=== PATIENT | female | born 1970 | race Caucasian/White ===

== ENCOUNTER → 2016-10-23 | Outpatient (CLI) | payer BC ==
--- NOTE | 2016-10-24 08:42 | MM ---
Reason for exam: clinical finding. Last mammogram was performed 9 months ago. History: Patient has history of other cancer at age 26. Took hormonal contraceptives for 6 years beginning at age 21. Indicated problem(s): palpable abnormality and pain in the left breast. Physical Findings: Nurse Summary: A 0.5cm nodule in the right breast at 10 o'clock, and a 0.2cm nodule in the left breast at 12 o'clock (nurse dw). MG 3D Diag Mammo W/Cad ISAIAS Bilateral CC and MLO view(s) were taken. Prior study comparison: January 17, 2016, bilateral MG screening mammo w CAD. October 28, 2008, bilateral digital screening mammogram. The breast tissue is extremely dense which could obscure a lesion on mammography. Nodules in the right breast. These results were verbally communicated with the patient and result sheet given to the patient on 10/23/16. ASSESSMENT: Incomplete: need additional imaging evaluation, BI-RAD 0 RECOMMENDATION: Ultrasound of both breasts. (left nodules and right palpable)
--- NOTE | 2016-10-24 08:45 | USB ---
Reason for exam: additional evaluation requested from abnormal screening. History: Patient has history of other cancer at age 26. Took hormonal contraceptives for 6 years beginning at age 21. US Breast Limited BILAT Right Breast ultrasound demonstrates a 0.4 x 0.3 x 0.2cm oval, too small to characterize lesion at 12 o'clock, a 0.3 x 0.2 x 0.2cm oval, too small to characterize lesion at 12 o'clock, a 0.4 x 0.3 x 0.4cm oval cystic lesion at 10 o'clock, and a 0.6 x 0.7 x 0.3 cm oval cystic lesion at 10 o'clock. Left breast ultrasound demonstrates a 2.4 x 2.7 x 2.1cm oval, cystic lesion at BB at 10 o'clock. These results were verbally communicated with the patient and result sheet given to the patient on 10/23/16. ASSESSMENT: Benign, BI-RAD 2 RECOMMENDATION: Aspiration of the left breast. (if dominant cyst in the left breast is painfulit can be aspirated) Manage patient on a clinical basis. Called Dr. Baptiste with mammographic findings and has scheduled an appointment for the patient for 11/15/[address] Larkin. Aspiration scheduled for 11/01/16 at 12:20. PRELIMINARY REPORT CALLED AND FAXED TO DR. LARKIN ON 10/24/16 AT 300/TMP.
== END | disposition home or self-care (01) ==
LOC: RADMAMWWP 15:41
PROVIDERS: ATTEND Obstetrics & Gynecology
DX: R92.2 Inconclusive mammogram (principal); N63 Unspecified lump in breast
CPT/HCPCS: 76642; G0204; G0279

== ENCOUNTER → 2016-11-01 | Day surgery (SDC) | payer BC ==
--- NOTE | 2016-11-01 13:58 | USB ---
ULTRASOUND GUIDED LEFT BREAST FINE-NEEDLE ASPIRATION: CLINICAL HISTORY: Request for large left breast cyst aspiration FINDINGS: The procedure was explained to the patient. The risks, complications, benefits and alternatives were discussed and any questions were answered. Informed consent was obtained. Patient was placed supine on the ultrasound table and prepped and draped in the usual sterile fashion. Utilizing a 22 gauge needle, single pass was made into the left breast lesion. Approximate 7 cc of serous fluid aspirated. Patient was stable throughout the procedure. Pathology is pending. All elements of maximal barrier technique were utilized. IMPRESSION: 1. Successful ultrasound guided left breast cyst aspiration. Pathology pending. Pathology Results: Benign BREAST, LEFT TEN O'CLOCK, ASPIRATE: DEGENERATED CELLULAR MATERIAL, HISTIOCYTES AND INFLAMMATORY CELLS CONSISTENT WITH CYST CONTENTS. Recommendation Follow up ultrasound of the left breast in 6 months. ERIKAD
== END ==
LOC: RADUSWWP 11:12
PROVIDERS: ATTEND Surgery
DX: N60.02 Solitary cyst of left breast (principal); Z88.5 Allergy status to narcotic agent; Z91.040 Latex allergy status
CPT/HCPCS: 76942; 88108; 88305

== ENCOUNTER → 2018-03-12 | Outpatient (CLI) | payer BC ==
--- NOTE | 2018-03-14 13:20 | MM ---
Reason for exam: screening (asymptomatic). Last mammogram was performed 1 year and 5 months ago. History: Patient has history of other cancer at age 26. Benign US breast aspiration single LT of the left breast, November 01, 2016. Took hormonal contraceptives for 6 years beginning at age 21. Physical Findings: A clinical breast exam by your physician is recommended on an annual basis and results should be correlated with mammographic findings. MG 3D Screening Mammo W/Cad Bilateral CC and MLO view(s) were taken. Prior study comparison: October 23, 2016, bilateral MG 3d diag mammo w/cad ISAIAS. January 17, 2016, bilateral MG screening mammo w CAD. The breast tissue is extremely dense which could obscure a lesion on mammography. There is no discrete abnormality at BB, consider ultrasound. No significant changes when compared with prior studies. ASSESSMENT: Incomplete: need additional imaging evaluation, BI-RAD 0 RECOMMENDATION: Ultrasound of the left breast. (palpable) [facility] will attempt to contact patient to return for ultrasound.
== END | disposition home or self-care (01) ==
LOC: RADMAMWWP 16:48
PROVIDERS: ATTEND Surgery
DX: Z12.31 Encounter for screening mammogram for malignant neoplasm of breast (principal)
CPT/HCPCS: 77063; 77067

== ENCOUNTER → 2018-03-26 | Outpatient (CLI) | payer BC ==
--- NOTE | 2018-03-27 09:51 | USB ---
Reason for exam: additional evaluation requested from abnormal screening. History: Patient has history of other cancer at age 26. Benign US breast aspiration single LT of the left breast, November 01, 2016. Took hormonal contraceptives for 6 years beginning at age 21. Physical Findings: Nurse Summary: left breast palpable 6 o'clock, tender, movable, 2 x 2cm (nurse ts). US Breast Workup Limited LT Left limited breast ultrasound including focal area of concern, retroareolar and axilla demonstrates a 2.7 x 0.7 x 1.9cm benign, cystic cluster at 3 o'clock, a 1.9 x 0.9 x 1.9cm benign, cystic cluster at 5 o'clock BB and duct ectasia at the posterior nipple. No solid or suspicious lesion. Scanned 3-6 o'clock. These results were verbally communicated with the patient and result sheet given to the patient on 03/26/18. ASSESSMENT: Benign, BI-RAD 2 RECOMMENDATION: Return to routine screening mammogram schedule for both breasts. Manage on a clinical basis with regard to palpable cysts. Cyst aspiration can be performed if symptomatic.
== END | disposition home or self-care (01) ==
LOC: RADUSWWP 15:42
PROVIDERS: ATTEND Surgery
DX: R92.8 Other abnormal and inconclusive findings on diagnostic imaging of breast (principal)

== ENCOUNTER → 2020-02-05 | Outpatient (CLI) | payer BC ==
--- NOTE | 2020-02-09 08:27 | MM ---
Reason for exam: screening (asymptomatic). Last mammogram was performed 1 year and 11 months ago. History: Patient has history of other cancer at age 26. Family history of breast cancer in paternal cousin at age 60. Benign US breast aspiration single LT of the left breast, November 01, 2016. Took hormonal contraceptives for 6 years beginning at age 21. Physical Findings: A clinical breast exam by your physician is recommended on an annual basis and results should be correlated with mammographic findings. MG 3D Screening Mammo W/Cad Bilateral CC and MLO view(s) were taken. Prior study comparison: March 12, 2018, bilateral MG 3d screening mammo w/cad. October 23, 2016, bilateral MG 3d diag mammo w/cad ISAIAS. The breast tissue is extremely dense which could obscure a lesion on mammography. No significant changes when compared with prior studies. ASSESSMENT: Negative, BI-RAD 1 RECOMMENDATION: Routine screening mammogram of both breasts in 1 year.
== END | disposition home or self-care (01) ==
LOC: RADMAMWWP 16:37
PROVIDERS: ATTEND Family Medicine
DX: Z12.31 Encounter for screening mammogram for malignant neoplasm of breast (principal)
CPT/HCPCS: 77063; 77067

== ENCOUNTER 2020-02-19 09:45 | Day surgery (SDC) | payer BC ==
[2020-02-17 17:06] VITALS: BMI 23.8
[~2020-02-19 09:45] MED LIST: LACTATED RINGERS 1,000 ML IV SCH
[2020-02-19 10:30] VITALS: TEMP 98.8
[2020-02-19] MEDS ORDERED: PROPOFOL 10 MG/ML 20 ML VIAL IV ONE (11:44)
--- NOTE | 2020-02-19 12:24 | P.PCN ---
Date of Procedure: 02/19/20 Description of Procedure: BRIEF HISTORY: Patient is a 50-year-old female presenting for outpatient colonoscopy for training for malignant neoplasm in the colon. No prior colonoscopy. No change in bowel habits, blood per rectum or family history of colon cancer. PROCEDURE PERFORMED: Colonoscopy. PREOPERATIVE DIAGNOSIS: Screening for malignant neoplasm of the colon, no prior colonoscopy. ESTIMATED BLOOD LOSS: Minimal. IV sedation per Anesthesia. PROCEDURE: After informed consent was obtained, the patient, was brought into the endoscopy unit. IV sedation was administered by Anesthesia under continuous monitoring. Digital rectal examination was normal. Initially the Olympus CF-190 flexible video colonoscope was then inserted in the rectum, gradually advanced into the cecum without any difficulty. Careful examination was performed as the scope was gradually being withdrawn. Ileocecal valve and the appendiceal orifice were visualized and appeared normal. Prep was excellent. Mucosa of the cecum, ascending colon, transverse colon, descending colon, sigmoid colon, and rectum appeared normal. Sigmoid was somewhat tortuous. Retroflexion was performed in the rectum and no lesions were seen. The patient tolerated the procedure well. IMPRESSION: Normal-appearing colon from rectum to cecum. RECOMMENDATIONS: Findings of this examination were discussed with the patient and her . Okay to resume diet. Okay to resume medications. Would recommend repeat colonoscopy in 10 years or sooner if any signs or symptoms which were further evaluation develop.
[2020-02-19 13:02] VITALS: BP 125/74; PULSE 77; RESP 18
== END 2020-02-19 13:27 | disposition home or self-care (01) ==
LOC: ORWHC2ENDO 09:45
PROVIDERS: ATTEND Internal Medicine
DX: Z12.11 Encounter for screening for malignant neoplasm of colon (principal); Z80.0 Family history of malignant neoplasm of digestive organs; Z91.040 Latex allergy status; Z79.899 Other long term (current) drug therapy; Z88.5 Allergy status to narcotic agent
CPT/HCPCS: 81025; G0121; J2704; 45378

== ENCOUNTER → 2021-02-17 | Outpatient (CLI) | payer BC ==
--- NOTE | 2021-02-21 12:35 | MM ---
Reason for exam: screening (asymptomatic). Last mammogram was performed 1 year ago. History: Patient has history of other cancer at age 26. Family history of breast cancer in paternal cousin at age 60. Benign US breast aspiration single LT of the left breast, November 01, 2016. Took hormonal contraceptives for 6 years beginning at age 21. Physical Findings: A clinical breast exam by your physician is recommended on an annual basis and results should be correlated with mammographic findings. MG 3D Screening Mammo W/Cad Bilateral CC and MLO view(s) were taken. XCCL view(s) were taken of the right breast. Prior study comparison: February 05, 2020, bilateral MG 3d screening mammo w/cad. March 12, 2018, bilateral MG 3d screening mammo w/cad. The breast tissue is heterogeneously dense. This may lower the sensitivity of mammography. No significant changes when compared with prior studies. ASSESSMENT: Benign, BI-RAD 2 RECOMMENDATION: Routine screening mammogram of both breasts in 1 year.
== END | disposition home or self-care (01) ==
LOC: RADMAMWWP 16:22
PROVIDERS: ATTEND Obstetrics & Gynecology
DX: Z12.31 Encounter for screening mammogram for malignant neoplasm of breast (principal); Z80.3 Family history of malignant neoplasm of breast
CPT/HCPCS: 77063; 77067

== ENCOUNTER → 2022-03-03 | Outpatient (CLI) | payer BC ==
--- NOTE | 2022-03-10 18:14 | MM ---
Reason for Exam: Screening (asymptomatic). Last mammogram was performed 1 year(s) and 1 month(s) ago. Indicated Problems: Lump or thickening of the right side for 1 Month(s). Patient History: Menarche at age 11. First Full-Term at age 28. Late child-bearing (after 28). Other cancer, age 26. Hormonal Contraceptives, starting at age 21 for 6 years. 11/01/2016, Benign Cyst Aspiration on the left side. Paternal cousin had breast cancer, age 60. Last menstrual period: Risk Values: Macrina 5 year model risk: 1.6%. NCI Lifetime model risk: 11.4%. Prior Study Comparison: 03/12/2018 Bilateral Screening Mammogram, [facility]. 02/05/2020 Bilateral Screening Mammogram, [facility]. 02/17/2021 Bilateral Screening Mammogram, [facility]. Tissue Density: The breast tissue is heterogeneously dense. This may lower the sensitivity of mammography. Findings: Analyzed By CAD. There is no suspicious group of microcalcifications or new suspicious mass in either breast. Overall Assessment: Negative, BI-RAD 1 Management: Screening Mammogram of both breasts in 1 year. A clinical breast exam by your physician is recommended on an annual basis and results should be correlated with mammographic findings. Electronically signed and approved by: Sascha Navarro DO
== END | disposition home or self-care (01) ==
LOC: RADMAMWWP 16:56
PROVIDERS: ATTEND Obstetrics & Gynecology
DX: Z12.31 Encounter for screening mammogram for malignant neoplasm of breast (principal)
CPT/HCPCS: 77063; 77067

== ENCOUNTER → 2022-05-17 | Outpatient (CLI) | payer BC ==
[2022-05-17 15:37] LABS: HCT 45.1 % (37.2-46.3); HGB 14.6 g/dL (12.0-15.0); MCH 29.4 pg (27.0-32.0); MCHC 32.4 g/dL (32.0-37.0); MCV 90.9 fL (80.0-97.0); Mean Platelet Volume 10.1 fL (9.5-12.2); NRBC Per 100 WBC 0 /100 WBCS (0.0-0.0); Platelet Count 264 X 10*3/uL (140-440); RBC 4.96 X 10*6/uL (4.10-5.20); RDW 13.8 % (11.5-14.5)
[2022-05-17 18:22] LABS: ALT 27 U/L (8-44); AST 26 U/L (13-35); African American GFR (CKD) 96.9 (60.0-200.0); Albumin 3.5 g/dL (3.8-4.9); Albumin/Globulin Ratio 1.94 (1.60-3.17); Alkaline Phosphatase 56 U/L (41-126); Blood Urea Nitrogen 19.6 mg/dL (9.0-27.0); Calcium 8.7 mg/dL (8.7-10.3); Chloride 106 mmol/L (96-109); Chol/HDL Ratio 2.79 Ratio; Globulin 1.8 g/dL (1.6-3.3); Glucose 91 mg/dL (70-110); LDL Cholesterol,Calculated 106.4 mg/dL (0.0-131.0); Non-African American GFR(CKD) 83.6 (60.0-200.0); Potassium 4.4 mmol/L (3.5-5.5); Sodium 141 mmol/L (135-145); Total Protein 5.3 g/dL (6.2-8.2); VLDL Calculation 11.66 mg/dL (5.00-40.00)
== END | disposition home or self-care (01) ==
LOC: LABWHC1 10:45
PROVIDERS: ATTEND Family Medicine
DX: Z00.01 Encounter for general adult medical examination with abnormal findings (principal)
CPT/HCPCS: 36415; 80053; 80061; 85027

== ENCOUNTER 2022-06-10 13:49 | Emergency (ER) | payer BC ==
[2022-06-10 14:11] VITALS: TEMP 98.6
[2022-06-10 14:22] VITALS: RESP 18
[2022-06-10] MEDS ORDERED: SODIUM CHLORIDE 0.9% 1,000 ML IV STA (14:55)
[2022-06-10] MEDS ORDERED: NALOXONE 0.4 MG/ML 1 ML VIAL IVP STA (14:56)
[2022-06-10 15:29] LABS: Basophils # (A) 0.1 k/uL (0-0.2); Basophils % (A) 1 %; Eosinophils # (A) 0.2 k/uL (0-0.7); Eosinophils % (A) 2 %; HCT 44.4 % (34.0-46.0); HGB 15.2 gm/dL (11.4-16.0); Lymphocytes # (A) 2.1 k/uL (1.0-4.8); Lymphocytes % (A) 24 %; MCH 30.4 pg (25.0-35.0); MCHC 34.1 g/dL (31.0-37.0); Mean Platelet Volume 8.6; Monocytes # (A) 0.5 k/uL (0-1.0); Monocytes % (A) 5 %; Neutrophils # (A) 5.5 k/uL (1.3-7.7); Neutrophils % (A) 65 %; Platelet Count 299 k/uL (150-450); RBC 4.99 m/uL (3.80-5.40); RDW 13.1 % (11.5-15.5); WBC 8.4 k/uL (3.8-10.6)
[2022-06-10 16:07] LABS: Glucose,Whole Blood 82 mg/dL (70-110)
[2022-06-10 16:14] LABS: Appearance,Urine Clear (Clear); Bilirubin,Urine Negative (Negative); Blood,Urine Negative (Negative); Color,Urine Light Yellow; Glucose,Urine (UA) Negative (Negative); Ketones,Urine Trace (Negative); Leukocyte Esterase,Urine Negative (Negative); Nitrite,Urine Negative (Negative); Protein,Urine Negative (Negative); Specific Gravity,Urine 1.013 (1.001-1.035); Urobilinogen,Urine <2.0 mg/dL (<2.0)
[2022-06-10 16:20] LABS: Partial Thromboplastin Time 22.5 sec (22.0-30.0); Prothrombin Time 10.5 sec (9.0-12.0)
[2022-06-10 16:34] LABS: Amphetamine Screen,Urine Not Detected (NotDetected); Barbiturate Screen,Urine Not Detected (NotDetected); Benzodiazepines Screen,Urine Not Detected (NotDetected); Cocaine Screen,Urine Not Detected (NotDetected); Methadone Screen, Urine Not Detected (NotDetected); Opiate Screen,Urine Not Detected (NotDetected); Oxycodone Screen, Urine Not Detected (NotDetected); Phencyclidine Screen,Urine Not Detected (NotDetected); Tricyclic Antidepressant,Urine Not Detected (NotDetected); Urn Cannabinoid Scrn Not Detected (NotDetected)
--- NOTE | 2022-06-10 16:49 | XR ---
EXAMINATION TYPE: XR chest 2V DATE OF EXAM: 06/10/2022 4:27 PM COMPARISON: None TECHNIQUE: XR chest 2V Frontal and lateral views of the chest. CLINICAL INDICATION:Female, 52 years old with history of altered mental status; FINDINGS: Lungs/Pleura: There is no evidence of pleural effusion, focal consolidation, or pneumothorax. Pulmonary vascularity: Unremarkable. Heart/mediastinum: Cardiomediastinal silhouette is unremarkable. Musculoskeletal: No acute osseous pathology. IMPRESSION: No acute cardiopulmonary disease/process.
--- NOTE | 2022-06-10 16:50 | CT ---
EXAMINATION TYPE: CT brain wo con CT DLP: 1145.4 mGycm, Automated exposure control for dose reduction was used. DATE OF EXAM: 06/10/2022 4:30 PM COMPARISON: None CLINICAL INDICATION:Female, 52 years old with history of obtunded, TECHNIQUE: Brain: Axial CT images of the brain were obtained with coronal and sagittal reformats created and rev iewed. Contrast used: None. Oral contrast used: None. FINDINGS: Brain: Extra-axial spaces: No abnormal extra-axial fluid collections. Ventricular system: Within normal limits Cerebral parenchyma: No acute intraparenchymal hemorrhage or mass effect. The tinoco-white junction is well differentiated. Cerebellum: Unremarkable. Mass effect: No evidence of midline shift. Intracranial vasculature: unremarkable Soft tissues: Normal. Calvarium/osseous structures: No depressed skull fracture. Paranasal sinuses and mastoid air cells: Moderate scattered paranasal sinus disease most pronounced i n the left maxillary sinus and ethmoid air cells. Visualized orbits: Orbital contents are intact. IMPRESSION: 1. No acute intracranial process. 2. Moderate paranasal sinus disease.
[2022-06-10 17:24] VITALS: BP 135/87; PULSE 80
--- NOTE | 2022-06-10 17:42 | ED ---
General Adult HPI - General Source: patient Mode of arrival: EMS Limitations: no limitations <Chetan Craven - Last Filed: 06/10/22 17:42> <Tee Iraheta - Last Filed: 06/10/22 18:33> - General Chief complaint: Dizziness Stated complaint: Dizziness Time Seen by Provider: 06/10/22 14:31 - History of Present Illness Initial comments: Patient is a 52-year-old female presenting with chief complaint of dizziness. A t 12:37 PM patient had acute onset dizziness, headache, diaphoresis, hallucinations, numbness and tingling. Patient was on the phone when her son noticed that she was acting abnormally, called EMS. He states that when EMS arrived patient was tachycardic and hypertensive. She admits to headache and nausea. At this time she denies any chest pain, difficulty breathing, vision or hearing changes, abdominal pain, fever, chills, vomiting, syncope. (Chetan Craven) - Related Data Home Medications Medication Instructions Recorded Confirmed Cholecalciferol (Vitamin D3) 125 mcg PO DAILY 02/17/20 02/19/20 [Vitamin D3] Multivitamins, Thera [Multivitamin 1 tab PO DAILY 02/17/20 02/19/20 (formulary)] levonorgestreL [Mirena] 1 each IY ONCE 02/17/20 02/19/20 Allergies Allergy/AdvReac Type Severity Reaction Status Date / Time latex Allergy BLISTERS Verified 02/17/20 16:39 Review of Systems ROS Other: All systems not noted in ROS Statement are negative. <Chetan Craven - Last Filed: 06/10/22 17:42> ROS Other: All systems not noted in ROS Statement are negative. <Tee Iraheta - Last Filed: 06/10/22 18:33> ROS Statement: Those systems with pertinent positive or pertinent negative responses have been documented in the HPI. Past Medical History Additional Past Medical History / Comment(s): HAS IUD History of Any Multi-Drug Resistant Organisms: None Reported Past Surgical History: Orthopedic Surgery Additional Past Surgical History / Comment(s): RT ROTATOR CUFF REPAIR. LT KNEE SX Past Anesthesia/Blood Transfusion Reactions: No Reported Reaction Past Psychological History: No Psychological Hx Reported Smoking Status: Never smoker Past Alcohol Use History: Occasional Past Drug Use History: None Reported Additional Drug Use History / Comment(s): USES CBD OINTMENT NEEDED - Past Family History Father Family Medical History: Deep Vein Thrombosis (DVT) <Chetan Craven - Last Filed: 06/10/22 17:42> General Exam Limitations: no limitations General appearance: alert, in no apparent distress Head exam: Present: atraumatic, normocephalic, normal inspection Eye exam: Present: normal appearance, PERRL, EOMI. Absent: scleral icterus, conjunctival injection, periorbital swelling Pupils: Present: normal accommodation Neck exam: Present: normal inspection, full ROM Respiratory exam: Present: normal lung sounds bilaterally. Absent: respiratory distress, wheezes, rales, rhonchi, stridor Cardiovascular Exam: Present: regular rate, normal rhythm, normal heart sounds. Absent: systolic murmur, diastolic murmur, rubs, gallop, clicks GI/Abdominal exam: Present: soft. Absent: distended, tenderness, guarding, rebound, rigid Neurological exam: Present: alert, oriented X3, CN II-XII intact Expanded Patient oriented to: Present: person, place, time Speech: Present: fluid speech Cranial nerves: EOM's Intact: Normal, Tongue Deviation: Normal, Facial Sensati on: Normal Cerebellar function: Finger to Nose: Normal Sensory exam: Upper Extremity Light Touch: Normal, Lower Extremity Light Touch: Normal Motor strength exam: RUE: 5, LUE: 5, RLE: 5, LLE: 5 Eye Response: (4) open spontaneously Motor Response: (6) obeys commands Verbal Response: (5) oriented Oscar Total: 15 Psychiatric exam: Present: normal affect, normal mood Skin exam: Present: warm, dry, intact, normal color. Absent: rash <Chetan Craven - Last Filed: 06/10/22 17:42> Course Vital Signs 06/10/22 06/10/22 06/10/22 14:05 14:21 17:10 Temperature 98.6 F Pulse Rate 86 78 80 Respiratory 20 18 18 Rate Blood Pressure 132/92 132/90 135/87 O2 Sat by Pulse 100 92 L 100 Oximetry Medical Decision Making - Lab Data Result diagrams: 06/10/22 15:00 <Chetan Craven - Last Filed: 06/10/22 17:42> - Lab Data Result diagrams: 06/10/22 15:00 06/10/22 18:06 <Tee Iraheta - Last Filed: 06/10/22 18:33> - Medical Decision Making Patient is a 52-year-old female presenting with multiple complaints, including altered mental status, headache, nausea. On physical examination there are no focal neurological deficits, NIH score is 0. Heart and lungs are clear to auscultation. Lab work shows no leukocytosis or anemia. Coags are WNL. Blood sugar is 82. Ammonia is 14. Troponin is less than 0.012. Urine shows trace ketones, patient is receiving IV fluids. Urine toxicology is negative. CT of the brain shows no acute intracranial process. Chest x-ray shows no acute c ardiopulmonary process. CMP has been repeatedly hemolyzed, new sample is sent. Patient is signed out to my attending Dr. Iraheta at [id number]. (Chetan Craven) - Lab Data Lab Results 06/10/22 06/10/22 06/10/22 Range/Units 15:00 15:00 15:00 WBC 8.4 (3.8-10.6) k/uL RBC 4.99 (3.80-5.40) m/uL Hgb 15.2 (11.4-16.0) gm/dL Hct 44.4 (34.0-46.0) % MCV 89.0 (80.0-100.0) fL MCH 30.4 (25.0-35.0) pg MCHC 34.1 (31.0-37.0) g/dL RDW 13.1 (11.5-15.5) % Plt Count 299 (150-450) k/uL MPV 8.6 Neutrophils % 65 % Lymphocytes % 24 % Monocytes % 5 % Eosinophils % 2 % Basophils % 1 % Neutrophils # 5.5 (1.3-7.7) k/uL Lymphocytes # 2.1 (1.0-4.8) k/uL Monocytes # 0.5 (0-1.0) k/uL Eosinophils # 0.2 (0-0.7) k/uL Basophils # 0.1 (0-0.2) k/uL PT 10.5 (9.0-12.0) sec INR 1.0 (<1.2) APTT 22.5 (22.0-30.0) sec Sodium (137-145) mmol/L Potassium (3.5-5.1) mmol/L Chloride (98-107) mmol/L Carbon Dioxide (22-30) mmol/L Anion Gap mmol/L BUN (7-17) mg/dL Creatinine (0.52-1.04) mg/dL Est GFR (CKD-EPI)AfAm (>60 ml/min/1.73 sqM) Est GFR (CKD-EPI)NonAf (>60 ml/min/1.73 sqM) Glucose (74-99) mg/dL POC Glucose (mg/dL) (70-110) mg/dL POC Glu [employer] Faculty Member ID Calcium (8.4-10.2) mg/dL Magnesium (1.6-2.3) mg/dL Total Bilirubin (0.2-1.3) mg/dL AST (14-36) U/L ALT (4-34) U/L Alkaline Phosphatase (38-126) U/L Ammonia (<30) umol/L Troponin I <0.012 (0.000-0.034) ng/mL Total Protein (6.3-8.2) g/dL Albumin (3.5-5.0) g/dL Urine Color Urine Appearance (Clear) Urine pH (5.0-8.0) Ur Specific [place] (1.001-1.035) Urine Protein (Negative) Urine Glucose (UA) (Negative) Urine Ketones (Negative) Urine Blood (Negative) Urine Nitrite (Negative) Urine Bilirubin (Negative) Urine Urobilinogen (<2.0) mg/dL Ur Leukocyte Esterase (Negative) Urine Opiates Screen (NotDetected) Ur Oxycodone Screen (NotDetected) Urine Methadone Screen (NotDetected) Ur Propoxyphene Screen (NotDetected) Ur Barbiturates Screen (NotDetected) U Tricyclic Antidepress (NotDetected) Ur Phencyclidine Scrn (NotDetected) Ur Amphetamines Screen (NotDetected) U Methamphetamines Scrn (NotDetected) U Benzodiazepines Scrn (NotDetected) Urine Cocaine Screen (NotDetected) U Marijuana (THC) Screen (NotDetected) 12/17/22 12/17/22 12/17/22 Range/Units 15:00 15:15 15:55 WBC (3.8-10.6) k/uL RBC (3.80-5.40) m/uL Hgb (11.4-16.0) gm/dL Hct (34.0-46.0) % MCV (80.0-100.0) fL MCH (25.0-35.0) pg MCHC (31.0-37.0) g/dL RDW (11.5-15.5) % Plt Count (150-450) k/uL MPV Neutrophils % % Lymphocytes % % Monocytes % % Eosinophils % % Basophils % % Neutrophils # (1.3-7.7) k/uL Lymphocytes # (1.0-4.8) k/uL Monocytes # (0-1.0) k/uL Eosinophils # (0-0.7) k/uL Basophils # (0-0.2) k/uL PT (9.0-12.0) sec INR (<1.2) APTT (22.0-30.0) sec Sodium (137-145) mmol/L Potassium (3.5-5.1) mmol/L Chloride (98-107) mmol/L Carbon Dioxide (22-30) mmol/L Anion Gap mmol/L BUN (7-17) mg/dL Creatinine (0.52-1.04) mg/dL Est GFR (CKD-EPI)AfAm (>60 ml/min/1.73 sqM) Est GFR (CKD-EPI)NonAf (>60 ml/min/1.73 sqM) Glucose (74-99) mg/dL POC Glucose (mg/dL) 82 (70-110) mg/dL POC Glu [employer] Faculty Member ID Luis Miguel Michel Calcium (8.4-10.2) mg/dL Magnesium (1.6-2.3) mg/dL Total Bilirubin (0.2-1.3) mg/dL AST (14-36) U/L ALT (4-34) U/L Alkaline Phosphatase (38-126) U/L Ammonia 14 (<30) umol/L Troponin I (0.000-0.034) ng/mL Total Protein (6.3-8.2) g/dL Albumin (3.5-5.0) g/dL Urine Color Light Yellow Urine Appearance Clear (Clear) Urine pH 8.0 (5.0-8.0) Ur Specific [place] 1.013 (1.001-1.035) Urine Protein Negative (Negative) Urine Glucose (UA) Negative (Negative) Urine Ketones Trace H (Negative) Urine Blood Negative (Negative) Urine Nitrite Negative (Negative) Urine Bilirubin Negative (Negative) Urine Urobilinogen <2.0 (<2.0) mg/dL Ur Leukocyte Esterase Negative (Negative) Urine Opiates Screen Not Detected (NotDetected) Ur Oxycodone Screen Not Detected (NotDetected) Urine Methadone Screen Not Detected (NotDetected) Ur Propoxyphene Screen Not Detected (NotDetected) Ur Barbiturates Screen Not Detected (NotDetected) U Tricyclic Antidepress Not Detected (NotDetected) Ur Phencyclidine Scrn Not Detected (NotDetected) Ur Amphetamines Screen Not Detected (NotDetected) U Methamphetamines Scrn Not Detected (NotDetected) U Benzodiazepines Scrn Not Detected (NotDetected) Urine Cocaine Screen Not Detected (NotDetected) U Marijuana (THC) Screen Not Detected (NotDetected) 06/10/22 Range/Units 18:06 WBC (3.8-10.6) k/uL RBC (3.80-5.40) m/uL Hgb (11.4-16.0) gm/dL Hct (34.0-46.0) % MCV (80.0-100.0) fL MCH (25.0-35.0) pg MCHC (31.0-37.0) g/dL RDW (11.5-15.5) % Plt Count (150-450) k/uL MPV Neutrophils % % Lymphocytes % % Monocytes % % Eosinophils % % Basophils % % Neutrophils # (1.3-7.7) k/uL Lymphocytes # (1.0-4.8) k/uL Monocytes # (0-1.0) k/uL Eosinophils # (0-0.7) k/uL Basophils # (0-0.2) k/uL PT (9.0-12.0) sec INR (<1.2) APTT (22.0-30.0) sec Sodium 138 (137-145) mmol/L Potassium 3.9 (3.5-5.1) mmol/L Chloride 104 (98-107) mmol/L Carbon Dioxide 30 (22-30) mmol/L Anion Gap 4 mmol/L BUN 20 H (7-17) mg/dL Creatinine 0.65 (0.52-1.04) mg/dL Est GFR (CKD-EPI)AfAm >90 (>60 ml/min/1.73 sqM) Est GFR (CKD-EPI)NonAf >90 (>60 ml/min/1.73 sqM) Glucose 103 H (74-99) mg/dL POC Glucose (mg/dL) (70-110) mg/dL POC Glu [employer] Faculty Member ID Calcium 8.3 L (8.4-10.2) mg/dL Magnesium 1.9 (1.6-2.3) mg/dL Total Bilirubin 0.4 (0.2-1.3) mg/dL AST 30 (14-36) U/L ALT 43 H (4-34) U/L Alkaline Phosphatase 73 (38-126) U/L Ammonia (<30) umol/L Troponin I (0.000-0.034) ng/mL Total Protein 5.5 L (6.3-8.2) g/dL Albumin 3.4 L (3.5-5.0) g/dL Urine Color Urine Appearance (Clear) Urine pH (5.0-8.0) Ur Specific [place] (1.001-1.035) Urine Protein (Negative) Urine Glucose (UA) (Negative) Urine Ketones (Negative) Urine Blood (Negative) Urine Nitrite (Negative) Urine Bilirubin (Negative) Urine Urobilinogen (<2.0) mg/dL Ur Leukocyte Esterase (Negative) Urine Opiates Screen (NotDetected) Ur Oxycodone Screen (NotDetected) Urine Methadone Screen (NotDetected) Ur Propoxyphene Screen (NotDetected) Ur Barbiturates Screen (NotDetected) U Tricyclic Antidepress (NotDetected) Ur Phencyclidine Scrn (NotDetected) Ur Amphetamines Screen (NotDetected) U Methamphetamines Scrn (NotDetected) U Benzodiazepines Scrn (NotDetected) Urine Cocaine Screen (NotDetected) U Marijuana (THC) Screen (NotDetected) Disposition <Chetan Craven Last Filed: 06/10/22 17:42> Is patient prescribed a controlled substance at d/c from ED?: No <Tee Iraheta - Last Filed: 06/10/22 18:33> Clinical Impression: Altered mental status Disposition: HOME SELF-CARE Condition: Good Instructions (If sedation given, give patient instructions): Altered Mental Status (ED) Referrals: Masoud Minor MD [Primary Care Provider] - 1-2 days Siva Britt MD [STAFF PHYSICIAN] - 1-2 days
[2022-06-10 18:29] LABS: ALT 43 U/L (4-34); AST 30 U/L (14-36); African American GFR (CKD) >90 (>60 ml/min/1.73 sqM); Albumin 3.4 g/dL (3.5-5.0); Alkaline Phosphatase 73 U/L (38-126); Anion Gap 4 mmol/L; Blood Urea Nitrogen 20 mg/dL (7-17); Calcium 8.3 mg/dL (8.4-10.2); Carbon Dioxide 30 mmol/L (22-30); Chloride 104 mmol/L (98-107); Glucose 103 mg/dL (74-99); Magnesium 1.9 mg/dL (1.6-2.3); Non-African American GFR(CKD) >90 (>60 ml/min/1.73 sqM); Potassium 3.9 mmol/L (3.5-5.1); Sodium 138 mmol/L (137-145); Total Bilirubin 0.4 mg/dL (0.2-1.3); Total Protein 5.5 g/dL (6.3-8.2)
== END 2022-06-10 19:18 | disposition home or self-care (01) ==
LOC: EC 13:49
DX: R41.82 Altered mental status, unspecified (principal); Z88.2 Allergy status to sulfonamides; Z97.5 Presence of (intrauterine) contraceptive device
CPT/HCPCS: 36415; 70450; 71046; 80053; 80306; 81003; 82140; 83735; 84484; 85025; 85610; 85730; 93005; 99285

== ENCOUNTER → 2022-07-22 | Outpatient (CLI) | payer BC ==
--- NOTE | 2022-07-24 09:33 | MR ---
EXAMINATION TYPE: MR brain wo/w con DATE OF EXAM: 07/22/2022 8:18 AM CLINICAL INDICATION:Female, 52 years old with history of R41.82 ALTERED MENTAL STATUS,Z86.73 PRSNL HX OF TI; Memory loss, episode of hallucination, possible seizure COMPARISON: CT brain 06/10/2022 TECHNIQUE: Multi planar, multi sequence imaging was performed through the brain including: T1, T2, In version recovery, susceptibility weighted imaging and gradient echo imaging and Diffusion weighted im aging. The patient was then given intravenous contrast and multi planar, T1 fat-saturation images wer e obtained. IV Contrast: 7 cc Gadavist FINDINGS: The tinoco-white junctions, ventricular system, basal cisterns appear unremarkable. Diffusion-weighted imaging shows no evidence of restricted diffusion to suggest acute/subacute infarct. Intracranial art erial flow voids are maintained. Midline structures show no abnormality. Scattered foci of high T2 si gnal intensity are seen within the periventricular white matter as well as in the bilateral seema. The susceptibility weighted images do not reveal any evidence for micro-hemorrhage. After administration of gadolinium, no abnormal enhancement is seen. The bone marrow signal is within normal limits. Paranasal sinuses and mastoid air cells: Mild scattered paranasal sinus disease. Visualized orbits: Orbital contents are intact. IMPRESSION: 1. No evidence of intracranial mass, acute/subacute infarct, or abnormal enhancement. 2. Nonspecific white matter changes within the deep white matter and seema.
== END | disposition home or self-care (01) ==
LOC: RADMRIMAIN 07:34
PROVIDERS: ATTEND Psychiatry & Neurology Neurology
DX: R41.82 Altered mental status, unspecified (principal); R90.82 White matter disease, unspecified; Z86.73 Personal history of transient ischemic attack (TIA), and cerebral infarction without residual deficits
CPT/HCPCS: 70553; A9585

== ENCOUNTER 2022-09-23 19:53 | Observation (INO) | payer BC ==
[2022-09-23] MEDS ORDERED: SODIUM CHLORIDE 0.9% 1,000 ML IV ONE (20:21)
[2022-09-23] MEDS ORDERED: ONDANSETRON 4 MG/2 ML VIAL IVP STA (20:22)
[2022-09-23 20:28] LABS: Glucose,Whole Blood 137 mg/dL (70-110)
[2022-09-23 20:30] LABS: Basophils % (A) 0 %; Eosinophils # (A) 0.1 k/uL (0-0.7); Eosinophils % (A) 1 %; HCT 41.8 % (34.0-46.0); HGB 13.7 gm/dL (11.4-16.0); Lymphocytes # (A) 0.4 k/uL (1.0-4.8); Lymphocytes % (A) 5 %; MCH 29.6 pg (25.0-35.0); MCHC 32.8 g/dL (31.0-37.0); MCV 90.5 fL (80.0-100.0); Mean Platelet Volume 7.6; Monocytes # (A) 0.2 k/uL (0-1.0); Monocytes % (A) 2 %; Neutrophils # (A) 6.7 k/uL (1.3-7.7); Neutrophils % (A) 91 %; Platelet Count 273 k/uL (150-450); RBC 4.62 m/uL (3.80-5.40); RDW 13.5 % (11.5-15.5); WBC 7.4 k/uL (3.8-10.6)
[2022-09-23 20:42] LABS: ALT 31 U/L (4-34); AST 28 U/L (14-36); African American GFR (CKD) >90 (>60 ml/min/1.73 sqM); Albumin 3.9 g/dL (3.5-5.0); Alcohol <10 mg/dL; Alkaline Phosphatase 66 U/L (38-126); Anion Gap 5 mmol/L; Blood Urea Nitrogen 22 mg/dL (7-17); Calcium 8.6 mg/dL (8.4-10.2); Carbon Dioxide 29 mmol/L (22-30); Chloride 102 mmol/L (98-107); Glucose 129 mg/dL (74-99); Non-African American GFR(CKD) >90 (>60 ml/min/1.73 sqM); Potassium 4.4 mmol/L (3.5-5.1); Sodium 136 mmol/L (137-145); Total Bilirubin 0.5 mg/dL (0.2-1.3); Total Protein 6.2 g/dL (6.3-8.2)
[2022-09-23 20:54] LABS: INR 0.9 (<1.2); Prothrombin Time 10.1 sec (9.0-12.0)
--- NOTE | 2022-09-23 20:58 | XR ---
EXAMINATION TYPE: XR chest 2V DATE OF EXAM: 09/23/2022 8:53 PM COMPARISON: Chest radiographs from 06/10/2022 TECHNIQUE: XR chest 2V Frontal and lateral views of the chest. CLINICAL INDICATION:Female, 52 years old with history of altered mental status; FINDINGS: Lungs/Pleura: There is no evidence of pleural effusion, focal consolidation, or pneumothorax. Pulmonary vascularity: Unremarkable. Heart/mediastinum: Cardiomediastinal silhouette is unremarkable. Musculoskeletal: No acute osseous pathology. IMPRESSION: No acute cardiopulmonary disease/process.
--- NOTE | 2022-09-23 21:00 | CT ---
EXAMINATION TYPE: CT brain wo con CT DLP: 1131.4 mGycm, Automated exposure control for dose reduction was used. DATE OF EXAM: 09/23/2022 8:53 PM COMPARISON: MR 07/24/2022, CT 06/10/2022. CLINICAL INDICATION:Female, 52 years old with history of Altered mental status, AMS TECHNIQUE: Brain: Axial CT images of the brain were obtained with coronal and sagittal reformats created and rev iewed. Contrast used: None. Oral contrast used: None. FINDINGS: Brain: Extra-axial spaces: No abnormal extra-axial fluid collections. Ventricular system: Within normal limits Cerebral parenchyma: No acute intraparenchymal hemorrhage or mass effect. The tionco-white junction is well differentiated. Cerebellum: Unremarkable. Mass effect: No evidence of midline shift. Intracranial vasculature: unremarkable Soft tissues: Normal. Calvarium/osseous structures: No depressed skull fracture. Paranasal sinuses and mastoid air cells: Mild scattered paranasal sinus disease. Visualized orbits: Orbital contents are intact. IMPRESSION: No acute intracranial process.
[2022-09-23 21:32] LABS: Partial Thromboplastin Time 21.1 sec (22.0-30.0)
[2022-09-23] MEDS ORDERED: SODIUM CHLORIDE 0.9% 1,000 ML IV STA (21:34)
[2022-09-23] MEDS ORDERED: MAGNESIUM SULFATE-D5W PMX 1 GM in DEXTROSE/WATER 1 100ML.BAG IVPB ONE (21:34)
[2022-09-23] MEDS ORDERED: NALOXONE 0.4 MG/ML 1 ML VIAL IV PRN (21:52)
--- NOTE | 2022-09-23 21:52 | ED ---
General Adult HPI - General Chief complaint: Headache Stated complaint: siezure Time Seen by Provider: 09/23/22 20:04 Source: patient, RN notes reviewed, old records reviewed Mode of arrival: ambulatory Limitations: no limitations - History of Present Illness Initial comments: Patient is a 52-year-old female who presents to the emergency department comp laining of an episode of altered mental status. This has occurred previously and a thorough outpatient workup including psychiatric eval is yet to produce any answers. Last occurred back in May. Patient was on a bus returning from [facility] with her with she and episode of screaming out per as well as some episodes where she seemed to be somewhat semi-conscious and acting differently. Possible shaking of the upper extremities as well. Presents for further evaluation at this time. Patient states she feels tired. No other acute complaints at this time. Mild intermittent headache. No chest pain, shortness breath, abdominal pain, nausea, vomiting. No other acute c omplaints. Unknown what her MRI showed. Was obtained back in June. Presents for further evaluation. - Related Data Home Medications Medication Instructions Recorded Confirmed Cholecalciferol (Vitamin D3) 125 mcg PO DAILY 02/17/20 09/23/22 [Vitamin D3] levonorgestreL [Mirena] 1 dose IY DIRECTED 02/17/20 09/23/22 Ascorbic Acid [Vitamin C] 1,000 mg PO DAILY 09/23/22 09/23/22 Azelastine HCl [Astelin Nasal 137 mcg EA NOSTRIL DAILY PRN 09/23/22 09/23/22 [place]] Fexofenadine/Pseudoephedrine 1 tab PO BID PRN 09/23/22 09/23/22 [Yesenia-D 12 Hour Tablet] Ibuprofen [Advil] 400 mg PO Q8HR PRN 09/23/22 09/23/22 Magnesium 250 mg PO DAILY 09/23/22 09/23/22 Vitamin B Complex 1 cap PO DAILY 09/23/22 09/23/22 Zinc Gluconate [Zinc] 50 mg PO DAILY 09/23/22 09/23/22 valACYclovir HCL [Valtrex] 500 mg PO DIRECTED PRN 09/23/22 09/23/22 Allergies Allergy/AdvReac Type Severity Reaction Status Date / Time latex Allergy BLISTERS Verified 09/23/22 22:21 Review of Systems ROS Statement: Those systems with pertinent positive or pertinent negative responses have been documented in the HPI. Review of Systems: CONST: Denies fever EYES: Denies blurry vision ENT: Denies nasal congestion C/V: Denies Chest pain RESP: Denies shortness of breath GI: Denies abdominal pain : Denies dysuria SKIN: Denies rash. MSK: Denies joint pain. NEURO: Endorses generalized weakness ROS Other: All systems not noted in ROS Statement are negative. Past Medical History Additional Past Medical History / Comment(s): HAS IUD History of Any Multi-Drug Resistant Organisms: None Reported Past Surgical History: Orthopedic Surgery Additional Past Surgical History / Comment(s): RT ROTATOR CUFF REPAIR. LT KNEE SX Past Anesthesia/Blood Transfusion Reactions: No Reported Reaction Past Psychological History: No Psychological Hx Reported Smoking Status: Never smoker Past Alcohol Use History: Occasional Past Drug Use History: None Reported - Past Family History Father Family Medical History: Deep Vein Thrombosis (DVT) General Exam - General Exam Comments Initial Comments: General: Appears in no acute distress. HEAD: Normal with no signs of head trauma. EYES: PERRLA, EOMI, conjunctiva normal, no discharge. Pupils are 3 mm and equal bilaterally. ENT: Hearing grossly intact, normal oropharynx. RESPIRATORY: Clear breath sounds bilaterally. No wheezes, rales, or rhonchi. C/V: Regular rate and rhythm. S1 and S2 auscultated, no edema, peripheral pu lses 2+ and intact throughout ABD: Abd is soft, nontender, nondistended EXT: Normal range of motion, no obvious deformity SKIN: No rashes or lesions observed on exposed skin. NEURO: Alert and oriented 4. NIH is 0. GCS of 15. No focal deficits. Limitations: no limitations Course Vital Signs 09/23/22 09/23/22 09/23/22 19:59 21:03 21:20 Temperature 97.4 F L Pulse Rate 88 82 82 Respiratory 20 16 16 Rate Blood Pressure 137/86 133/81 129/79 O2 Sat by Pulse 99 99 94 L Oximetry Medical Decision Making - Medical Decision Making Was pt. sent in by a medical professional or institution (, PA, BANKRUPTCY LAW SPECIALIST, urgent care, hospital, or [facility]...) When possible be specific @ -No Did you speak to anyone other than the patient for history (EMS, parent, family, police, friend...)? What history was obtained from this source @ -Patient's who assists with the history. Did you review nursing and triage notes (agree or disagree)? Why? @ -I reviewed and agree with nursing and triage notes Were old charts reviewed (outside hosp., previous admission, EMS record, old EKG, old radiological studies, urgent care reports/EKG's, [facility] records)? Report findings @ -Old MRIs as well as prior visit from May 2022 were reviewed. Differential Diagnosis (chest pain, altered mental status, abdominal pain women, abdominal pain men, vaginal bleeding, weakness, fever, dyspnea, syncope, headache, dizziness, GI bleed, back pain, seizure, CVA, palpatations, mental health, musculoskeletal)? @ -Seizure, pseudoseizure, psychiatric illness, CVA, dehydration, infection, cardiopulmonary etiology such as ACS. This list is not all-inclusive. EKG interpreted by me (3pts min.). @ -As above X-rays interpreted by me (1pt min.). @ -Chest x-ray shows no acute cardio pulmonary process. CT interpreted by me (1pt min.). @ -CT brain shows no obvious acute intracranial injury or process. U/S interpreted by me (1pt. min.). @ -None done What testing was considered but not performed or refused? (CT, X-rays, U/S, labs)? Why? @ -None What meds were considered but not given or refused? Why? @ -None Did you discuss the management of the patient with other professionals (professionals i.e. , PA, BANKRUPTCY LAW SPECIALIST, lab, RT, psych nurse, health and social care teacher, line painting machine operator, teacher, parachute officer, correctional case manager)? Give summary @ -Discussed with the admitting physician, Dr. Adam who accepted the patient. Was smoking cessation discussed for >3mins.? @ -No Was critical care preformed (if so, how long)? @ -No Were there social determinants of health that impacted care today? How? (Homelessness, low income, unemployed, alcoholism, drug addiction, transportation, low edu. Level, literacy, decrease access to med. care, long-term, r ehab)? @ -No Was there de-escalation of care discussed even if they declined (Discuss DNR or withdrawal of care, Hospice)? DNR status @ -No What co-morbidities impacted this encounter? (DM, HTN, Smoking, COPD, CAD, Cancer, CVA, ARF, Chemo, Hep., AIDS, mental health diagnosis, sleep apnea, morbid obesity)? @ -None Was patient admitted / discharged? Hospital course, mention meds given and route, prescriptions, significant lab abnormalities, going to OR and other pertinent info. @ -Based on the patient's presentation and physical exam, she had a "neurologic episode" as her and her call it. She had one back in May but had multiple potential episodes today. They don't know if it is seizures or not. Has had a thorough outpatient workup for this. Patient currently is more tired than her normal baseline. Presents for further evaluation at this time. We will obtain broad workup including CT brain. She was in agreement this plan. Otherwise acting normally. Exam is unremarkable. Vital signs within acceptable limits. Patient's EKG shows no signs of acute ischemia. Imaging for a chest x-ray as well as brain CT were unremarkable. Patient's laboratory studies are remarkable for a lactic acid within normal limits. Ammonia is negative. Troponin is undetectable. Urine studies are still pending at this time. Remainder of the labs are within acceptable limits. Based on the workup, I'm concerned for possible psychiatric contribution to her symptoms but cannot rule out other neurological cause. I did discuss with the patient and patient's her workup. At this time, patient is still more tired and below her baseline per patient's . I did offer admission to observation for neurology evaluate her as well as to watch her overnight and they were in agreement this plan. States that she has had no other episodes until today when she had multiple episodes since her last episode back in May. We did discuss her MRI findings from back in June which showed nonspecific white matter changes in the seema. We will keep her in telemetry monitoring and have neuro evaluate her here. Dr. Britt was consulted. I spoke with Dr. Adam the accepting physician who accepted the patient. Undiagnosed new problem with uncertain prognosis? @ -Yes Drug Therapy requiring intensive monitoring for toxicity (Heparin, Nitro, Insulin, Cardizem)? @ -No Were any procedures done? @ -No Diagnosis/symptom? @ -Altered mental status Acute, or Chronic, or Acute on Chronic? @ -Acute on chronic Uncomplicated (without systemic symptoms) or Complicated (systemic symptoms)? @ -Uncomplicated Side effects of treatment? @ -No Exacerbation, Progression, or Severe Exacerbation? @ -No Poses a threat to life or bodily function? How? (Chest pain, [place], [place], pneumonia, PE, COPD, DKA, ARF, appy, cholecystitis, CVA, Diverticulitis, Homicidal, Suicidal, threat to staff... and all critical care pts) @ -Potentially, unknown etiology. - Lab Data Result diagrams: 09/23/22 20:24 09/23/22 20:24 Lab Results 09/23/22 09/23/22 09/23/22 Range/Units 20:24 20:24 20:24 WBC 7.4 (3.8-10.6) k/uL RBC 4.62 (3.80-5.40) m/uL Hgb 13.7 (11.4-16.0) gm/dL Hct 41.8 (34.0-46.0) % MCV 90.5 (80.0-100.0) fL MCH 29.6 (25.0-35.0) pg MCHC 32.8 (31.0-37.0) g/dL RDW 13.5 (11.5-15.5) % Plt Count 273 (150-450) k/uL MPV 7.6 Neutrophils % 91 % Lymphocytes % 5 % Monocytes % 2 % Eosinophils % 1 % Basophils % 0 % Neutrophils # 6.7 (1.3-7.7) k/uL Lymphocytes # 0.4 L (1.0-4.8) k/uL Monocytes # 0.2 (0-1.0) k/uL Eosinophils # 0.1 (0-0.7) k/uL Basophils # 0.0 (0-0.2) k/uL PT 10.1 (9.0-12.0) sec INR 0.9 (<1.2) APTT 21.1 L (22.0-30.0) sec Sodium 136 L (137-145) mmol/L Potassium 4.4 (3.5-5.1) mmol/L Chloride 102 (98-107) mmol/L Carbon Dioxide 29 (22-30) mmol/L Anion Gap 5 mmol/L BUN 22 H (7-17) mg/dL Creatinine 0.51 L (0.52-1.04) mg/dL Est GFR (CKD-EPI)AfAm >90 (>60 ml/min/1.73 sqM) Est GFR (CKD-EPI)NonAf >90 (>60 ml/min/1.73 sqM) Glucose 129 H (74-99) mg/dL POC Glucose (mg/dL) (70-110) mg/dL POC Glu Intermediate Manager ID Plasma Lactic Acid Richard (0.7-2.0) mmol/L Calcium 8.6 (8.4-10.2) mg/dL Total Bilirubin 0.5 (0.2-1.3) mg/dL AST 28 (14-36) U/L ALT 31 (4-34) U/L Alkaline Phosphatase 66 (38-126) U/L Ammonia (<30) umol/L Troponin I (0.000-0.034) ng/mL Total Protein 6.2 L (6.3-8.2) g/dL Albumin 3.9 (3.5-5.0) g/dL Serum Alcohol <10 mg/dL 09/23/22 09/23/22 09/23/22 Range/Units 20:24 20:24 20:26 WBC (3.8-10.6) k/uL RBC (3.80-5.40) m/uL Hgb (11.4-16.0) gm/dL Hct (34.0-46.0) % MCV (80.0-100.0) fL MCH (25.0-35.0) pg MCHC (31.0-37.0) g/dL RDW (11.5-15.5) % Plt Count (150-450) k/uL MPV Neutrophils % % Lymphocytes % % Monocytes % % Eosinophils % % Basophils % % Neutrophils # (1.3-7.7) k/uL Lymphocytes # (1.0-4.8) k/uL Monocytes # (0-1.0) k/uL Eosinophils # (0-0.7) k/uL Basophils # (0-0.2) k/uL PT (9.0-12.0) sec INR (<1.2) APTT (22.0-30.0) sec Sodium (137-145) mmol/L Potassium (3.5-5.1) mmol/L Chloride (98-107) mmol/L Carbon Dioxide (22-30) mmol/L Anion Gap mmol/L BUN (7-17) mg/dL Creatinine (0.52-1.04) mg/dL Est GFR (CKD-EPI)AfAm (>60 ml/min/1.73 sqM) Est GFR (CKD-EPI)NonAf (>60 ml/min/1.73 sqM) Glucose (74-99) mg/dL POC Glucose (mg/dL) 137 H (70-110) mg/dL POC Glu Intermediate Manager ID Selene Antoine Plasma Lactic Acid Richard 1.0 (0.7-2.0) mmol/L Calcium (8.4-10.2) mg/dL Total Bilirubin (0.2-1.3) mg/dL AST (14-36) U/L ALT (4-34) U/L Alkaline Phosphatase (38-126) U/L Ammonia <9 (<30) umol/L Troponin I <0.012 (0.000-0.034) ng/mL Total Protein (6.3-8.2) g/dL Albumin (3.5-5.0) g/dL Serum Alcohol mg/dL - EKG Data -: EKG Interpreted by Me EKG Comments: 12-lead Electrocardiogram Interpretation Note EKG was reviewed and interpreted by myself. 12-lead ECG performed at 2034 is interpreted by me as revealing normal sinus rhythm at a rate of 68 beats per minute. [place] is normal. OR interval is 200 ms, QRS duration is 117 ms, QTc is slightly prolonged at 477 ms.. There were no ST or T wave abnormalities to suggest myocardial ischemia or injury. R wave progression across the precordium was satisfactory. By my interpretation this EKG is non-diagnostic for acute ischemia. Disposition Clinical Impression: AMS (altered mental status) Disposition: ADMITTED IP TO THIS HOSP Condition: Stable Is patient prescribed a controlled substance at d/c from ED?: No Time of Disposition: 21:35
[2022-09-24 01:02] LABS: Appearance,Urine Clear (Clear); Bilirubin,Urine Negative (Negative); Blood,Urine Negative (Negative); Color,Urine Yellow; Glucose,Urine (UA) Negative (Negative); Ketones,Urine 3+ (Negative); Leukocyte Esterase,Urine Negative (Negative); Nitrite,Urine Negative (Negative); PH, Urine 5.5 (5.0-8.0); Protein,Urine Negative (Negative); Specific Gravity,Urine 1.022 (1.001-1.035); Urobilinogen,Urine <2.0 mg/dL (<2.0)
[2022-09-24 01:54] LABS: Amphetamine Screen,Urine Not Detected (NotDetected); Barbiturate Screen,Urine Not Detected (NotDetected); Benzodiazepines Screen,Urine Not Detected (NotDetected); Cocaine Screen,Urine Not Detected (NotDetected); Methadone Screen, Urine Not Detected (NotDetected); Opiate Screen,Urine Not Detected (NotDetected); Oxycodone Screen, Urine Not Detected (NotDetected); Phencyclidine Screen,Urine Not Detected (NotDetected); Tricyclic Antidepressant,Urine Not Detected (NotDetected); Urn Cannabinoid Scrn Not Detected (NotDetected)
--- NOTE | 2022-09-24 02:49 | P.HPIM ---
History of Present Illness H&P Date: 09/23/22 Chief Complaint: confusion 52 year old female with no significant past medical history she is coming in for evaluation due to an episode of confusion and bizarre behavior. which has happened before about 3-4 months ago. she claims to be at her baseline status of health , she was on a trip at [place], and taking the bus back to [place] today, she woke up feeling fine, but she feels exhausted from her trip, the symptoms started when she was on the bus, she does not recall details, but reports what she felt as her partner telling her what happened. she started making frequent loud noises, and throwing fists around, with sudden jerky movements. she does not recall being aware of them , but feels that her mentation was foggy and that she was hallucinating vague people around her and that her vision felt like as if covered with large white patch that prevented her from recognizing where she is or who is around her. that pretty much kept happening throughout the trip back. then at one point she discovered that she has wet her pants and had to change them. she was and still experiencing frontal headache, dull in nature 4-5/10 in severity , currently no associated vision changes, hearing changes, no slurred speech, no other focal neuro deficits. no fever, no chills, no chest pain no abd pain , no nausea or vomiting, no coughing no SOB. no changes in urinary or bowel habits. she had extensive workup done earlier this year for a similar episode of these symptoms, including psych eval which is ongoing and Brain MRI that showed no acute abnormalities Review of Systems Pertinent positives as noted in HPI. All other systems were reviewed and are negative Past Medical History Additional Past Medical History / Comment(s): HAS IUD History of Any Multi-Drug Resistant Organisms: None Reported Past Surgical History: Orthopedic Surgery Additional Past Surgical History / Comment(s): RT ROTATOR CUFF REPAIR. LT KNEE SX Past Anesthesia/Blood Transfusion Reactions: No Reported Reaction Past Psychological History: No Psychological Hx Reported Smoking Status: Never smoker Past Alcohol Use History: Occasional Past Drug Use History: None Reported - Past Family History Father Family Medical History: Deep Vein Thrombosis (DVT) Medications and Allergies Home Medications Medication Instructions Recorded Confirmed Type Cholecalciferol (Vitamin D3) 125 mcg PO DAILY 02/17/20 09/23/22 History [Vitamin D3] levonorgestreL [Mirena] 1 dose IY DIRECTED 02/17/20 09/23/22 History Ascorbic Acid [Vitamin C] 1,000 mg PO DAILY 09/23/22 09/23/22 History Azelastine HCl [Astelin Nasal 137 mcg EA NOSTRIL DAILY PRN 09/23/22 09/23/22 History [place]] Fexofenadine/Pseudoephedrine 1 tab PO BID PRN 09/23/22 09/23/22 History [Yesenia-D 12 Hour Tablet] Ibuprofen [Advil] 400 mg PO Q8HR PRN 09/23/22 09/23/22 History Magnesium 250 mg PO DAILY 09/23/22 09/23/22 History Vitamin B Complex 1 cap PO DAILY 09/23/22 09/23/22 History Zinc Gluconate [Zinc] 50 mg PO DAILY 09/23/22 09/23/22 History valACYclovir HCL [Valtrex] 500 mg PO DIRECTED PRN 09/23/22 09/23/22 History Allergies Allergy/AdvReac Type Severity Reaction Status Date / Time latex Allergy BLISTERS Verified 09/23/22 22:21 Physical Exam Vitals: Vital Signs Temp Pulse Resp BP Pulse Ox 09/23/22 21:20 82 16 129/79 94 L 09/23/22 21:03 82 16 133/81 99 09/23/22 19:59 97.4 F L 88 20 137/86 99 Intake and Output 09/23/22 09/23/22 09/23/22 06:59 14:59 22:59 Other: Weight 63.503 kg Constitutional: No acute distress, conversant, pleasant Eyes: Anicteric sclerae, moist conjunctiva, Pupils equal round reactive to light ENMT: NC/AT Oropharynx clear, no erythema, or exudates Neck: Supple, no masses, or JVD No carotid bruits No thyromegaly Lungs: Clear to auscultation Clear to percussion Normal respiratory effort, no accessory muscle use Cardiovascular: Heart regular in rate and rhythm, No murmurs, gallops, or rubs No peripheral edema Abdominal: Soft Nontender, no guarding, rebound or rigidity Abdomen moving with respiration Normoactive bowel sounds No hepatomegaly, No splenomegaly No palpable mass No abdominal wall hernia noted Skin: Normal temperature, tone, texture, turgor No induration No subcutaneous nodules No rash, lesions No ulcers Extremities: No digital cyanosis No clubbing Pedal pulses intact and symmetrical Radial pulses intact and symmetrical No calf tenderness Psychiatric: Alert and oriented to person, place and time Appropriate affect fair judgement Neuro Muscles Strength 5/5 in all 4 extremities Sensation to light touch grossly present throughout Cranial nerves II-XII grossly intact finger nose and heal to wong exam both unremarkable Lymphatics: no palpable cervical or supraclavicular lymph nodes Results CBC & Chem 7: 09/23/22 20:24 09/23/22 20:24 Labs: Abnormal Lab Results - Last 24 Hours (Table) 09/23/22 09/23/22 09/23/22 Range/Units 20:24 20:24 20:24 Lymphocytes # 0.4 L (1.0-4.8) k/uL APTT 21.1 L (22.0-30.0) sec Sodium 136 L (137-145) mmol/L BUN 22 H (7-17) mg/dL Creatinine 0.51 L (0.52-1.04) mg/dL Glucose 129 H (74-99) mg/dL POC Glucose (mg/dL) (70-110) mg/dL Total Protein 6.2 L (6.3-8.2) g/dL 09/23/22 Range/Units 20:26 Lymphocytes # (1.0-4.8) k/uL APTT (22.0-30.0) sec Sodium (137-145) mmol/L BUN (7-17) mg/dL Creatinine (0.52-1.04) mg/dL Glucose (74-99) mg/dL POC Glucose (mg/dL) 137 H (70-110) mg/dL Total Protein (6.3-8.2) g/dL Assessment and Plan Assessment: 52 year old female with recurrent episodes of bizarre behavior and hallucinations , I discussed the case with ED doc, and she seemed to be still confused and shaky at time of eval and presentation not feeling safe about going home, I accepted the admission for neurology eval , and psych eval with anticipated length of stay < 2 midnights episode of bizarre behavior and hallucinations, rule out underlying mental health issues. Brain CT no acute pathology blood work no significant electrolyte abnormalities, BUN 22, cr 0.5 suggestive of some component of dehydration , WBC 7.4 unremarkable for underlying acute infectious process neuro checks neuro consult psych eval Brain MRI done earlier this year for the prior episode of these symptoms was unremarkable fall precautions IVF hydration with normal saline , 1 L bolus then 100 cc per hour full code DVT PPX mechanical
[2022-09-24 07:59] LABS: Basophils % (A) 0 %; Eosinophils % (A) 1 %; HCT 39.7 % (34.0-46.0); HGB 12.8 gm/dL (11.4-16.0); Lymphocytes # (A) 0.8 k/uL (1.0-4.8); Lymphocytes % (A) 13 %; MCH 29.1 pg (25.0-35.0); MCHC 32.2 g/dL (31.0-37.0); MCV 90.2 fL (80.0-100.0); Mean Platelet Volume 7.9; Monocytes # (A) 0.4 k/uL (0-1.0); Monocytes % (A) 6 %; Neutrophils # (A) 4.9 k/uL (1.3-7.7); Neutrophils % (A) 78 %; Platelet Count 267 k/uL (150-450); RDW 13.9 % (11.5-15.5); WBC 6.2 k/uL (3.8-10.6)
[2022-09-24 08:10] LABS: African American GFR (CKD) >90 (>60 ml/min/1.73 sqM); Anion Gap 3 mmol/L; Blood Urea Nitrogen 13 mg/dL (7-17); Calcium 8.4 mg/dL (8.4-10.2); Carbon Dioxide 28 mmol/L (22-30); Chloride 107 mmol/L (98-107); Glucose 77 mg/dL (74-99); Non-African American GFR(CKD) >90 (>60 ml/min/1.73 sqM); Potassium 4.4 mmol/L (3.5-5.1); Sodium 138 mmol/L (137-145)
--- NOTE | 2022-09-24 10:36 | P.CNNES ---
History of Present Illness Consult date: 09/24/22 Requesting physician: Santiago Hughes Reason for Consult: 09/23/2022 History of Present Illness: This is a 52-year-old woman with history of meningitis at the age of 20 years old without any sequela who presented emergency department because of altered mental status. She stated that all the information is she does not remember but that she obtained it from her and family members. She stated that yesterday the riding back from [employer] trip and would bear since this past Sunday. She stated that yesterday she was on the bus heading back to [place], and had the abnormal movements of her extremities her vision was off she is completely confused and not acting herself and had an episode of urinary incontinence. She was confused for a long period of time. He does not recall the episode. She feels currently back to baseline. She denies any history of seizures. She is following up with neurologist (Dr. Ardon) since had episode of confusion in 06/10/2022. She had EEG performed at Dr. Ardon on her and stated pending result. She has coming up appointment with him this Sunday. She states that she has family history of Alzheimer's in their 70s. She also had a recent neuropsych evaluation last month and was told normal. She denies of tobacco use or any illicit drug use. She socially drinks alcohol. She denies any travel besides that recent trip. Currently feels back to baseline. Of note she stated that she had a similar episode in 06/10/2022 in which she had the confusion, abnormal movements and her confusion was out for prolonged periods time. She had MRI of the brain done on 07/22/2022 as reported as no evidence of intracranial mass, acute/subacute infarct, or abnormal enhancement. Nonspecific white matter changes within the deep white matter and seema. I personally reviewed the MRI and agree with report. Regarding her history she said it was normal. Some of the workup during his hospital visit consisted of: Patient is afebrile CBC with differential is lymphocytes 0.4 slightly low otherwise is unremarkable. Chemistry panel: Sodium is 136, BUN is 22, creatinine is 0.51, calcium ISHMAEL ALT ammonia are within normal limits. Urine drug screen is not detected and serum alcohol was less than 10. CT of the brain is reported as no acute intracranial process. Review of Systems Review of system: The 12 point system was reviewed and apparent positive and negative per HPI. Past Medical History Additional Past Medical History / Comment(s): HAS IUD History of Any Multi-Drug Resistant Organisms: None Reported Past Surgical History: Orthopedic Surgery Additional Past Surgical History / Comment(s): RT ROTATOR CUFF REPAIR. LT KNEE SX Past Anesthesia/Blood Transfusion Reactions: No Reported Reaction Past Psychological History: No Psychological Hx Reported Smoking Status: Never smoker Past Alcohol Use History: Occasional Past Drug Use History: None Reported - Past Family History Father Family Medical History: Deep Vein Thrombosis (DVT) Medications and Allergies Home Medications Medication Instructions Recorded Confirmed Type Cholecalciferol (Vitamin D3) 125 mcg PO DAILY 02/17/20 09/23/22 History [Vitamin D3] levonorgestreL [Mirena] 1 dose IY DIRECTED 02/17/20 09/23/22 History Ascorbic Acid [Vitamin C] 1,000 mg PO DAILY 09/23/22 09/23/22 History Azelastine HCl [Astelin Nasal 137 mcg EA NOSTRIL DAILY PRN 09/23/22 09/23/22 History Forestdale] Fexofenadine/Pseudoephedrine 1 tab PO BID PRN 09/23/22 09/23/22 History [Yesenia-D 12 Hour Tablet] Ibuprofen [Advil] 400 mg PO Q8HR PRN 09/23/22 09/23/22 History Magnesium 250 mg PO DAILY 09/23/22 09/23/22 History Vitamin B Complex 1 cap PO DAILY 09/23/22 09/23/22 History Zinc Gluconate [Zinc] 50 mg PO DAILY 09/23/22 09/23/22 History valACYclovir HCL [Valtrex] 500 mg PO DIRECTED PRN 09/23/22 09/23/22 History Allergies Allergy/AdvReac Type Severity Reaction Status Date / Time latex Allergy BLISTERS Verified 09/23/22 22:21 Physical Examination - Vital Signs Vital Signs: Vital Signs Temp Pulse Pulse Resp BP BP Pulse Ox 09/24/22 07:55 98.1 F 82 16 134/82 100 09/24/22 06:46 79 16 97 09/24/22 05:33 97.9 F 74 16 136/89 97 09/24/22 03:29 72 16 125/81 97 09/24/22 01:22 73 16 119/78 95 09/23/22 23:40 84 16 134/90 99 09/23/22 22:00 68 18 118/105 98 09/23/22 21:20 82 16 129/79 94 L 09/23/22 21:03 82 16 133/81 99 09/23/22 19:59 97.4 F L 88 20 137/86 99 Intake and Output 09/23/22 09/24/22 09/24/22 22:59 06:59 14:59 Other: Weight 63.503 kg GENERAL: The patient is lying in bed and is not in acute distress. CHEST: The heart rate is regular rate rhythm. No murmurs to auscultation. LUNG: Clear to auscultation bilaterally no wheezing noted throughout. Not labored breathing. ABDOMEN/GI: Bowel sounds present in all 4 quadrants. No tenderness to palpation throughout. NEUROLOGICAL: Higher mental function: The patient is awake, alert, oriented to self, place and time. Patient is following commands. No aphasia and no neglect. Cranial nerves: The pupils are round, equal and reactive to light and ac commodation. Visual fraire are full to confrontation throughout. Extraocular movement is intact no nystagmus is noted. Facial sensation is normal to touch throughout. The facial strength is normal throughout. Hearing is normal bilaterally to hand rub. Tongue is midline and moved [id number] without any difficulty. No dysarthria is noted. Shoulder shrug is normal bilaterally. Motor: The strength is 5 over 5 throughout. Normal tone and bulk. Cerebellum: Normal finger to nose heel to wong bilaterally. Sensation: Sensation is normal to touch throughout. Reflexes (right/left): 2+ Plantars are mute bilaterally. Results - Laboratory Findings CBC and BMP: 09/24/22 07:24 09/24/22 07:24 Abnormal Lab Findings: Abnormal Labs 09/23/22 09/23/22 09/23/22 20:24 20:24 20:24 Lymphocytes # 0.4 L APTT 21.1 L Sodium 136 L BUN 22 H Creatinine 0.51 L Glucose 129 H POC Glucose (mg/dL) Total Protein 6.2 L Urine Ketones 09/23/22 09/24/22 09/24/22 20:26 00:27 07:24 Lymphocytes # 0.8 L APTT Sodium BUN Creatinine Glucose POC Glucose (mg/dL) 137 H Total Protein Urine Ketones 3+ H Assessment and Plan Assessment: This is a 52-year-old woman who presented because of confusion. She stated that the she was riding back to [place] with her family from [place] and on route he had episode of abnormal movement of extremities, confusion, visual disturbance in her confusion was prolonged with urinary incontinence. She also had a similar episode in the 06/10/2022 in which she is she had the abnormal movement of extremities, visual disturbance with prolonged confusion. Abnormal movement of extremities with prolonged confusion and urinary incontinence and similar episode in May 2022 seem suspicious of new onset seizure History of meningitis as a child (1 years old) without sequela Family history of Alzheimer's dementia in their 70s years old (mother and grandmother) Plan: * I ordered a repeat MRI of the brain since the last one was in the June 2022 and will get as a seizure protocol * I ordered a routine EEG. If EEG is normal and does not show any seizures or epileptiform discharges would recommend epilepsy monitoring unit or a prolonged ambulatory EEG. * Patient's is in agreement of holding off any antiseizure medications until post work-up (EEG and MRI) * Consider lumbar puncture post EEG and MRI * I ordered the TSH, vitamin B12, folate, syphilis, HIV testing and I notified the patient about those. * Placed on seizure precautions seizure * Psychiatry team was consulted by the primary team * Patient had a recent neuropsych evaluation was told was normal. She had a recent routine EEG by her neurologist and pending result * We'll defer the rest of the medical management to primary team * She was notified because of her suspicious of seizures and her episodes of confusion that happened twice I advised her to avoid driving for 6 month according to the [place] BMP, avoid heights, avoid swimming unassisted or using heavy machinery. * Patient has coming-up appointment with her neurologist (Dr. Ardon) this Sunday. The plan is discussed with the patient, primary team and her nurse. Thank you for the consultation Dr. Monge will start neurology service tomorrow A.M. Time with Patient: Greater than 30
--- NOTE | 2022-09-24 11:13 | P.PN ---
Subjective Progress Note Date: 09/24/22 Patient is a 52-year-old female with no significant past medical history who presented to the ER with an episode of confusion, abnormal body movements, and loss of bladder control. On arrival to the ER her vital signs within normal limits. Laboratory analysis was remarkable for a BUN of 22, creatinine 0.51, glucose 137, and urinalysis had 3+ ketones. Chest x-ray showed no acute pro cess. CT brain showed no acute process. EKG showed normal sinus rhythm with an incomplete right bundle branch block. She was admitted for further monitoring. Patient seen and examined at bedside. Today she is having a headache and is just feeling exhausted. She is feeling even more exhausted yesterday to barely lift her head off of the pillow. She reports that this is her second time having these episodes and she had a similar one in May 2022 when she started seeing Dr. Ardon. She reports that she had an outpatient EEG and MRI and was also follow-up with him later this week for the results. She does not remember anything that happened yesterday having a very. Her did report that she was having involuntary movements of her extremities, confusion, with scarring, inability to concentrate. She does know that she lost her bladder and felt very tired and fatigued. Since that episode she has had a headache. She was concerned about possible Alzheimer disease that she's been having issues with memory. She did see neuropsych who does not believe there is an issue with Alzheimer's dementia. Vital signs reviewed General: nontoxic, no distress, appears at stated age Cardiovascular: S1S2 reg, no murmur, positive posterior tibial pulse bilateral, Lungs: CTA bilateral, no rhonchi, no rales , no accessory muscle use Abdominal: soft, nontender to palpation, no guarding, no appreciable organomegaly Ext: no gross muscle atrophy, no edema, no contractures Neuro: CN II-XI grossly intact, no focal neuro deficits Psych: Alert, oriented, appropriate affect Assessment: Impared awareness episode associated with involuntary movement, loss of bladder control, and post ictal state Mild dehydration, resolved Imaging: Chest x-ray showed no acute process. CT brain showed no acute process. EKG showed normal sinus rhythm with an incomplete right bundle branch block. Laboratory analysis shows white blood cell count 6.2, hemoglobin 12.8, hematocrit 39.7, platelets 267, sodium 138, BUN 13 down from 22, and creatinine 0.56 Data Review: Vital signs this morning show temperature 98.1, pulse 82, respirations 16, blood pressure 134/82, O2 sat 100% on room air Plan: - Case discussed with Dr. Britt at length, highly probable for non-focal, impaired awareness seizure or other seizure.Continue with seizure precuations, await EEG and MRI Brain. Patient does not want to start medications until EEG results are available. -Await TSH, B12, folate, syphilis, and HIV testing. -MRI and EEG are unrevealing neurology would consider lumbar puncture -Consider obtaining copies of notes from Dr. Ardon and neuropsychiatry tomorrow. - if neurologic assessment is unrevealing consider cardiac event monitor for possible arrhythmia DVT prophylaxis: SCDs This dictation was prepared using [employer] voice recognition software. Though every attempt is made to correct errors during during dictation some may still exist. Objective - Vital Signs Vital signs: Vital Signs Temp 98.1 F 09/24/22 07:55 Pulse 82 09/24/22 07:55 Resp 16 09/24/22 07:55 BP 134/82 09/24/22 07:55 Pulse Ox 100 09/24/22 07:55 FiO2 Intake & Output 09/23/22 09/24/22 09/24/22 18:59 06:59 18:59 Intake Total 118 Balance 118 Weight 63.503 kg Intake: Oral 118 - Labs CBC & Chem 7: 09/24/22 07:24 09/24/22 07:24 Labs: Abnormal Lab Results - Last 24 Hours (Table) 09/23/22 09/23/22 09/23/22 Range/Units 20:24 20:24 20:24 Lymphocytes # 0.4 L (1.0-4.8) k/uL APTT 21.1 L (22.0-30.0) sec Sodium 136 L (137-145) mmol/L BUN 22 H (7-17) mg/dL Creatinine 0.51 L (0.52-1.04) mg/dL Glucose 129 H (74-99) mg/dL POC Glucose (mg/dL) (70-110) mg/dL Total Protein 6.2 L (6.3-8.2) g/dL Urine Ketones (Negative) 09/23/22 09/24/22 09/24/22 Range/Units 20:26 00:27 07:24 Lymphocytes # 0.8 L (1.0-4.8) k/uL APTT (22.0-30.0) sec Sodium (137-145) mmol/L BUN (7-17) mg/dL Creatinine (0.52-1.04) mg/dL Glucose (74-99) mg/dL POC Glucose (mg/dL) 137 H (70-110) mg/dL Total Protein (6.3-8.2) g/dL Urine Ketones 3+ H (Negative)
--- NOTE | 2022-09-24 17:12 | P.CN ---
Psychiatric Consult - . 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 Patient states that on Sunday, she could not sleep, she let her pants, and she became wobbly. She then slept. She is unaware of what happened following that incident. Per patient's , patient had involuntary tremors, was shouting, was staring off, was not engaging, and was not fully conscious. There was a similar incident in May. While she was in the hospital, she would suddenly become nauseous and started swearing, patient also does not have much memory of this. There has been no bizarre behavior outside of this and patient has been acting appropriately today. Patient denies any suicidal or homicidal ideations intent or plan. At this time patient denies any auditory or visual hallucinations. Patient denies any flight of ideas racing thoughts and increased in goal directed behavior. Patient states that she drinks alcohol once every few weeks and she will drink 1-2 drinks at a time. She denies any other substance use. PAST PSYCHIATRIC HISTORY: Ed neuropsych testing recently. [Patient denies being on any psychiatric medications.] [Patient denies any previous psychiatric hospitalizations.] [Patient denies any psychiatric outpatient follow-up.] [Patient denies any history of suicide attempts in the past.] PMH:[denies] ALLERGIES: as per EMR CHEMICAL DEPENDENCY HISTORY: as per HPI FAMILY PSYCHIATRIC/SUBSTANCE USE HISTORY: Brother has bipolar disorder and committed suicide. Alcohol is an substance use runs in the family. Nephew has anxiety. Son has bipolar. Aunt has agoraphobia. Dad has depression. Mom's Alzheimer's. SOCIAL HISTORY: Patient was born in [place] and she grew up in [place]. She works as a teacher. She lives with her and has Masters level education MENTAL STATUS EXAM: General Appearance: Patient appears to be stated age is alert, [directable, and attempts to cooperate]. Patient appears to have good hygiene and grooming. Behavior: Patient is seated without any agitated behavior. [] Speech: Patient's speech is [fluent and nonpressured.] Mood/Affect: Patient reports their mood is fine", affect is congruent and Full range Suicidality/Homicidality: Patient denies having any homicidal ideation intent or plan. [Denies any suicidal ideations intent or plan] Perceptions: Patient denies any visual hallucinations [and denies any auditory hallucinations] Though content/process: [There is no evidence of any delusional thought content and thought process is linear and goal-directed.] Memory and concentration: AOX3, grossly intact for the purposes of this session. Judgment and insight: Fair IMPRESSIONS: The bizarre behavior occurred during her seizure-like episodes. This bizarre behavior was likely a part of the seizure-like episodes. Would recommend continuing the neurological workup. No psychiatric medications are indicated at this time PLAN: -Continue neurological workup -No psychiatric medications are indicated at this time -Does not meet criteria for inpatient hospitalization as patient is not suicidal, homicidal, psychotic, or manic -Psychiatry will sign off 09/24/22 17:06 09/24/22 17:10
--- NOTE | 2022-09-25 12:36 | MR ---
EXAMINATION TYPE: MR brain wo/w con DATE OF EXAM: 09/25/2022 11:43 AM CLINICAL INDICATION:Female, 52 years old with history of seizure POSSIBLE SEIZURES IN DEC AND ON 09-23 COMPARISON: Mri 07/22/2022 TECHNIQUE: Multi planar, multi sequence imaging was performed through the brain including: T1, T2, In version recovery, susceptibility weighted imaging and gradient echo imaging and Diffusion weighted im aging. The patient was then given intravenous contrast and multi planar, T1 fat-saturation images wer e obtained. IV Contrast: 7 cc Gadavist FINDINGS: The tinoco-white junctions, ventricular system, basal cisterns appear unremarkable. Diffusion-weighted imaging shows no evidence of restricted diffusion to suggest acute/subacute infarct. Intracranial art erial flow voids are maintained. Midline structures show no abnormality. Scattered foci of high T2 si gnal intensity are seen within the periventricular white matter. The susceptibility weighted images d o not reveal any evidence for micro-hemorrhage. After administration of gadolinium, no abnormal enhan cement is seen. The bone marrow signal is within normal limits. Paranasal sinuses and mastoid air cells: No significant paranasal sinus disease. Visualized orbits: Orbital contents are intact. IMPRESSION: 1. No evidence of intracranial mass, acute/subacute infarct, or abnormal enhancement. No significant change from prior. 2. Few nonspecific white matter changes, likely related to small vessel ischemic disease
--- NOTE | 2022-09-25 12:49 | P.PN ---
Subjective Progress Note Date: 09/25/22 Patient is a 52-year-old female with no significant past medical history who presented to the ER with an episode of confusion, abnormal body movements, and loss of bladder control. On arrival to the ER her vital signs within normal limits. Laboratory analysis was remarkable for a BUN of 22, creatinine 0.51, glucose 137, and urinalysis had 3+ ketones. Chest x-ray showed no acute process. CT brain showed no acute process. EKG showed normal sinus rhythm with an incomplete right bundle branch block. She was admitted for further monitoring. Neurology was consulted. Patient pending MRI and EEG. Currently not on any antiepileptics. Psychiatry was also consulted, altered mentation unl ikely to be psychiatric in nature. Patient seen and examined at bedside. No acute events overnight. No further seizure-like activities. Vital signs reviewed General: nontoxic, no distress, appears at stated age Cardiovascular: S1S2 reg, no murmur, positive posterior tibial pulse bilateral, Lungs: CTA bilateral, no rhonchi, no rales , no accessory muscle use Abdominal: soft, nontender to palpation, no guarding, no appreciable organomegaly Ext: no gross muscle atrophy, no edema, no contractures Neuro: CN II-XI grossly intact, no focal neuro deficits Psych: Alert, oriented, appropriate affect Assessment: Seizure-like activity Acute metabolic encephalopathy Mild dehydration, resolved Data Review: Vital signs this morning show temperature 97.6, pulse 66, respiratory rate 18, blood pressure 128/83, saturating at 99% on room air MRI report reviewed: No acute process B12 1300, folic acid 24, TSH 1.4 Plan: -Neurology following, pending EEG -Mentation has improved -Psychiatry note reviewed: Signed off, encephalopathy unlikely to be psychiatric in nature DVT prophylaxis: SCDs Discharge place: Home Discharge time: Likely tomorrow Objective - Vital Signs Vital signs: Vital Signs Temp 97.6 F 09/25/22 07:00 Pulse 66 09/25/22 07:00 Resp 18 09/25/22 07:00 BP 128/83 09/25/22 07:00 Pulse Ox 97 09/25/22 08:30 FiO2 Intake & Output 09/24/22 09/25/22 09/25/22 18:59 06:59 18:59 Intake Total 236 Balance 236 Intake: Oral 236 Other: Voiding Method Toilet # Voids 2 2 - Labs CBC & Chem 7: 04/02/23 07:24 09/24/22 07:24 Labs: Abnormal Lab Results - Last 24 Hours (Table) 09/24/22 Range/Units 07:24 Vitamin B12 1391.0 H (200.0-944.0) pg/mL
[2022-09-25 14:00] LABS: HIV 2 AB Non-Reactive (Non-Reactive); HIV AB P24 Non-Reactive (Non-Reactive); HIV P24 AG Non-Reactive (Non-Reactive)
--- NOTE | 2022-09-25 22:38 | EEG ---
ELECTROENCEPHALOGRAM REPORT PREAMBLE: This is a 52-year-old female who has presented with confusion with abnormal movement, rule out seizure. CURRENT MEDICATIONS: Advil, magnesium, zinc, Valtrex, fexofenadine/pseudoephedrine, Mirena. EEG FINDINGS: This is a 21-channel digital EEG recorded with video competent, utilizing 10/20 international system with referential and bipolar montages. Background consists of well developed, well regulated moderate voltage activity in 10 hertz alpha. Background is posterior dominant and reactive to eye opening and closing. Photic driving response was seen with some flash frequencies. Drowsiness was seen with presence of bilaterally symmetric theta frequency rhythm. Different stages of sleep were not seen. No focal or generalized epileptiform activity was seen. IMPRESSION: This is a normal awake and drowsy EEG. No focal, lateralized or epileptiform activity was seen. [id number] / IJN: [id number] /
[2022-09-26 07:56] VITALS: BP 136/84; PULSE 71; RESP 16; TEMP 97.6
--- NOTE | 2022-09-26 09:10 | P.PN ---
Subjective Progress Note Date: 09/25/22 Patient was initially seen by Dr. Siva Britt. Please refer to his note for details. Patient is a 52-year-old female with likely new onset seizure (prolonged confusion, urinary incontinence, abnormal movement of extremities). Patient had a similar event in May 2022. Patient states that she was a passenger in a bus coming back from [place] when she had about 6 episodes of altered mental status. With the first episode, she lost control of bladder. There was no tongue bite. Patient had a headache whole day yesterday in the brain was foggy, but today the headache is gone. No headache at this time. Mentation is back to normal. Patient remembers that after her first event in May 2022, she had a headache around that time also. Patient states that she has history of migraines before she had children. She has not been having any headaches since then. Objective - Vital Signs Vital signs: Vital Signs Temp 97.9 F 09/25/22 15:00 Pulse 71 09/25/22 15:00 Resp 18 09/25/22 15:00 BP 137/86 09/25/22 15:00 Pulse Ox 98 09/25/22 15:00 FiO2 Intake & Output 09/24/22 09/25/22 09/25/22 18:59 06:59 18:59 Intake Total 236 118 Balance 236 118 Intake: Oral 236 118 Other: Voiding Method Toilet # Voids 2 2 1 - Exam Patient's mental status, speech and language functions are normal. Cranial nerves are normal. Muscle strength is normal. No pronator drift. No ataxia. Sensations are equal. Tone and bulk of muscles normal. - Labs CBC & Chem 7: 09/24/22 07:24 09/24/22 07:24 Assessment and Plan Assessment: This is a 52-year-old woman who presented because of confusion. She stated that the she was riding back to [place] with her family from [place] and on route she had about 6 episodes of abnormal movement of extremities, confusion, visual disturbance, in 24 hours. The first episode also associated with urinary incontinence. She also had a similar episode in the 06/10/2022 in which she is she had the abnormal movement of extremities, visual disturbance with prolonged confusion. Abnormal movement of extremities with prolonged confusion and urinary incontinence and similar episode in May 2022 seem suspicious of new onset seizure History of meningitis as a child (1 years old) without sequela Family history of Alzheimer's dementia in their 70s years old (mother and grandmother) Plan: * MRI of the brain with and without contrast is normal. No acute ischemic process. No mass lesion. Some very scarce white matter lesions, which are nonspecific, does not appear demyelinating disease. * Patient had an EEG performed today, which is normal awake and drowsy. No epileptiform activity was seen. I discussed with patient in detail. She has an appointment with her neurologist Dr. Ardon tomorrow at 4 PM. I do not believe patient needs lumbar puncture, as the headache has resolved and her mentation is completely back to normal. * At this point, patient can either try antiepileptic medication like Topamax, which can help with migraines and seizure, or she can undergo further testing including prolonged EEG testing at perhaps epilepsy monitoring unit. * Patient has an appointment with her neurologist tomorrow at 4 PM. We will hold off on any antiepileptic medication at this time. Neurologically patient is clear for discharge, to follow up with her neurologist tomorrow at 4 PM. * TSH 1.40, vitamin B12 1391, folate 24.20, syphilis nonreactive, HIV testing negative, all normal. * Psychiatry team was consulted by the primary team * Patient had a recent neuropsych evaluation was told was normal. She had a recent routine EEG by her neurologist and pending result * We'll defer the rest of the medical management to primary team * She was notified because of her suspicious of seizures and her episodes of confusion that happened twice I advised her to avoid driving for 6 month according to the [place] BMP, avoid heights, avoid swimming unassisted or using heavy machinery. * Patient has coming-up appointment with her neurologist (Dr. Ardon) on Sunday, tomorrow at 4 PM. * Neurologically clear for discharge. Informed the nurse taking care of the patient.
--- NOTE | 2022-09-26 09:52 | P.DS ---
Providers Date of admission: 09/23/22 21:52 Expected date of discharge: 09/26/22 Attending physician: Glory Adam MD Consults: 09/23/22 21:52 Consult Physician Routine Consulting Provider: Siva Britt Consult Reason/Comments: ams Do you want consulting provider notified?: Yes 09/24/22 02:48 Consult Physician Routine Consulting Provider: Julius Crow Consult Reason/Comments: bizarre behavior Do you want consulting provider notified?: Yes, Notify in am Primary care physician: [facility] Course: Discharge Diagnosis: Seizure-like activity Acute metabolic encephalopathy Mild dehydration Hospital Course: Patient is a 52-year-old female with no significant past medical history who presented to the ER with an episode of confusion, abnormal body movements, and loss of bladder control. On arrival to the ER her vital signs within normal limits. Laboratory analysis was remarkable for a BUN of 22, creatinine 0.51, glucose 137, and urinalysis had 3+ ketones. Chest x-ray showed no acute process. CT brain showed no acute process. EKG showed normal sinus rhythm with an incomplete right bundle branch block. She was admitted for further monitoring. Neurology was consulted. MRI brain did not show any acute process, or masses. EEG did not show any epileptiform discharges. Psychiatry was also consulted, altered mentation unlikely to be psychiatric in nature. Mentation completely improved at the time of discharge. Patient will follow-up with her outpatient neurologist and PCP. Patient seen and examined at bedside. Vital signs reviewed and stable. General: nontoxic, no distress, appears at stated age Derm: warm, dry Head: atraumatic, normocephalic, symmetric Eyes: EOMI, no lid lag, anicteric sclera Mouth: no lip lesion, mucus membranes moist Cardiovascular: S1S2 reg, no murmur Lungs: CTA bilateral, no rhonchi, no rales , no accessory muscle use Abdominal: soft, nontender to palpation, no guarding, no appreciable organomegaly Ext: no gross muscle atrophy, no edema, no contractures Neuro: CN II-XI grossly intact, no focal neuro deficits Psych: Alert, oriented, appropriate affect A total of 33 minutes of time were spent preparing this complex discharge summary. Patient was discharged on 09/26/22 at 9:37. Patient Condition at Discharge: Stable Plan - Discharge Summary Discharge Rx Participant: No New Discharge Prescriptions: Continue Cholecalciferol (Vitamin D3) [Vitamin D3 (5000 Iu)] 125 mcg PO DAILY levonorgestreL [Mirena] 1 dose IY DIRECTED Zinc Gluconate [Zinc] 50 mg PO DAILY Ascorbic Acid [Vitamin C] 1,000 mg PO DAILY Fexofenadine/Pseudoephedrine [Eysenia-D 12 Hour Tablet] 1 tab PO BID PRN PRN Reason: Allergy Symptoms Azelastine HCl [Astelin Nasal [place]] 137 mcg EA NOSTRIL DAILY PRN PRN Reason: Allergy Symptoms valACYclovir HCL [Valtrex] 500 mg PO DIRECTED PRN PRN Reason: Cold Sores Vitamin B Complex 1 cap PO DAILY Magnesium 250 mg PO DAILY Ibuprofen [Advil] 400 mg PO Q8HR PRN PRN Reason: Pain Or Fever > 100.5 Discharge Medication List Cholecalciferol (Vitamin D3) [Vitamin D3 (5000 Iu)] 125 mcg PO DAILY 02/17/20 [History] levonorgestreL [Mirena] 1 dose IY DIRECTED 02/17/20 [History] Ascorbic Acid [Vitamin C] 1,000 mg PO DAILY 09/23/22 [History] Azelastine HCl [Astelin Nasal [place]] 137 mcg EA NOSTRIL DAILY PRN 09/23/22 [History] Fexofenadine/Pseudoephedrine [Yesenia-D 12 Hour Tablet] 1 tab PO BID PRN [History] Ibuprofen [Advil] 400 mg PO Q8HR PRN 09/23/22 [History] Magnesium 250 mg PO DAILY 09/23/22 [History] Vitamin B Complex 1 cap PO DAILY 09/23/22 [History] Zinc Gluconate [Zinc] 50 mg PO DAILY 09/23/22 [History] valACYclovir HCL [Valtrex] 500 mg PO DIRECTED PRN 09/23/22 [History] Follow up Appointment(s)/Referral(s): Masoud Minor MD [Primary Care Provider] - 1-2 days Activity/Diet/Wound Care/Special Instructions: Please see your neurologist as soon as possible. Please also see your PCP. Discharge Disposition: HOME SELF-CARE
== END 2022-09-26 10:58 | disposition home or self-care (01) ==
LOC: EC 19:53 → 6NMEDSUR 21:52
PROVIDERS: ADMIT Internal Medicine; ATTEND Internal Medicine
DX: R56.9 Unspecified convulsions (principal); G93.41 Metabolic encephalopathy; E86.0 Dehydration; R41.82 Altered mental status, unspecified; Z97.5 Presence of (intrauterine) contraceptive device; Z86.19 Personal history of other infectious and parasitic diseases; Z81.8 Family history of other mental and behavioral disorders; Z98.890 Other specified postprocedural states; Z82.49 Family history of ischemic heart disease and other diseases of the circulatory system; Z79.3 Long term (current) use of hormonal contraceptives; Z79.899 Other long term (current) drug therapy; Z91.040 Latex allergy status
CPT/HCPCS: 96361 ×3; 96365; 96375; 99285; 36415; 94760 ×2; 95816; 93005; 80053; 80048; 84443; 82607; 82140; 82746; 83605; 84484; 85025 ×2; 85610; 85730; 81003; 86780; 80306; 80320; 87390; 71046; 70450; 70553; G0378 ×4; J2405; J3475; A9585

== ENCOUNTER → 2024-04-16 | Outpatient (CLI) | payer BC ==
--- NOTE | 2024-04-17 17:31 | MM ---
Reason for Exam: Screening (asymptomatic). Last mammogram was performed 2 year(s) and 1 month(s) ago. Patient History: Menarche at age 11. First Full-Term at age 28. Late child-bearing (after 28). Perimenopausal. Other cancer, age 26. Hormonal Contraceptives, starting at age 21 for 6 years. 11/01/2016, Benign Cyst Aspiration on the left side. Paternal cousin had breast cancer, age 60. Risk Values: Macrina 5 year model risk: 1.7%. NCI Lifetime model risk: 10.9%. Prior Study Comparison: 02/05/2020 Bilateral Screening Mammogram, [facility]. 02/17/2021 Bilateral Screening Mammogram, [facility]. 03/03/2022 Bilateral MG 3D screening mammo w/cad, [facility]. Tissue Density: The breasts are heterogeneously dense, which may obscure small masses. Findings: Analyzed By CAD. There is no suspicious group of microcalcifications or new suspicious mass in either breast. Overall Assessment: Benign, BI-RAD 2 Management: Screening Mammogram of both breasts in 1 year. Given the patient's dense breast tissue, consideration can be given to supplementary screening with breast ultrasound. Patient should continue monthly self-breast exams. A clinical breast exam by your physician is recommended on an annual basis. This exam should not preclude additional follow-up of suspicious palpable abnormalities. Note on Macrina scores and lifetime risk: 1. A Macrina score greater than 3% is considered moderate risk. If this is the case, consider specialist referral to assess eligibility for a risk reducing agent. 2. If overall lifetime risk for the development of breast cancer is 20% or higher, the patient may qualify for future screening with alternating mammogram and breast MRI. [facility], , 04/17/2024 5:28 PM. Electronically signed and approved by: Shana Kiran M.D. Radiologist
== END | disposition home or self-care (01) ==
LOC: RADMAMWWP 09:01
PROVIDERS: ATTEND Family Medicine
CPT/HCPCS: 77063; 77067

== ENCOUNTER 2024-12-10 20:10 | Observation (INO) | payer BC ==
--- NOTE | 2024-12-10 20:31 | ED ---
General Adult HPI - General Chief complaint: Chest Pain Stated complaint: Chest pain Time Seen by Provider: 12/10/24 20:16 Source: patient, RN notes reviewed, old records reviewed Mode of arrival: ambulatory Limitations: no limitations - History of Present Illness Initial comments: 54-year-old female presents for evaluation of central chest pain. Severe at onset pain began approximately 1 hour prior to arrival. This was associated with diaphoresis. Patient has no prior history of cardiac disease. Pain at the time my evaluation is 1 out of 10. She states it did radiate to her upper abdomen. No vomiting. No fever. Patient takes only vitamins daily no chronic medical conditions. - Related Data Home Medications Medication Instructions Recorded Confirmed Cholecalciferol (Vitamin D3) 125 mcg PO DAILY 02/17/20 09/23/22 [Vitamin D3 (5000 Iu)] levonorgestreL [Mirena] 1 dose IY DIRECTED 02/17/20 09/23/22 Ascorbic Acid [Vitamin C] 1,000 mg PO DAILY 09/23/22 09/23/22 Azelastine HCl [Astelin Nasal 137 mcg EA NOSTRIL DAILY PRN 09/23/22 09/23/22 [place]] Fexofenadine/Pseudoephedrine 1 tab PO BID PRN 09/23/22 09/23/22 [Yesenia-D 12 Hour Tablet] Ibuprofen [Advil] 400 mg PO Q8HR PRN 09/23/22 09/23/22 Magnesium 250 mg PO DAILY 09/23/22 09/23/22 Vitamin B Complex 1 cap PO DAILY 09/23/22 09/23/22 Zinc Gluconate [Zinc] 50 mg PO DAILY 09/23/22 09/23/22 valACYclovir HCL [Valtrex] 500 mg PO DIRECTED PRN 09/23/22 09/23/22 Allergies Allergy/AdvReac Type Severity Reaction Status Date / Time latex Allergy BLISTERS Verified 12/10/24 20:14 Review of Systems ROS Statement: Those systems with pertinent positive or pertinent negative responses have been documented in the HPI. ROS Other: All systems not noted in ROS Statement are negative. Past Medical History Additional Past Medical History / Comment(s): HAS IUD History of Any Multi-Drug Resistant Organisms: None Reported Past Surgical History: Orthopedic Surgery Additional Past Surgical History / Comment(s): RT ROTATOR CUFF REPAIR. LT KNEE SX Past Anesthesia/Blood Transfusion Reactions: No Reported Reaction Past Psychological History: No Psychological Hx Reported Smoking Status: Never smoker Past Alcohol Use History: Occasional Past Drug Use History: None Reported - Past Family History Father Family Medical History: Deep Vein Thrombosis (DVT) General Exam Limitations: no limitations General appearance: alert, in no apparent distress Head exam: Present: atraumatic, normocephalic Eye exam: Present: normal appearance, PERRL Neck exam: Present: normal inspection. Absent: tenderness Respiratory exam: Present: normal lung sounds bilaterally. Absent: respiratory distress Cardiovascular Exam: Present: normal rhythm, tachycardia GI/Abdominal exam: Present: soft. Absent: distended, tenderness Extremities exam: Present: normal inspection Neurological exam: Present: alert, oriented X3 Psychiatric exam: Present: normal affect, normal mood Skin exam: Present: warm, intact, normal color Course Vital Signs 12/10/24 12/10/24 20:11 20:55 Temperature 97.9 F Pulse Rate 110 H 82 Respiratory 18 18 Rate Blood Pressure 182/97 141/87 O2 Sat by Pulse 99 97 Oximetry Medical Decision Making - Medical Decision Making Was pt. sent in by a medical professional or institution (Dr. PA, FEED INSPECTION SUPERVISOR, urgent care, hospital, or [place] health [place] facility...) When possible be specific @ -No Did you speak to anyone other than the patient for history (EMS, parent, family, police, friend...)? What history was obtained from this source @ -No Did you review nursing and triage notes (agree or disagree)? Why? @ -I reviewed and agree with nursing and triage notes Were old charts reviewed (outside hosp., previous admission, EMS record, old EKG, old radiological studies, urgent care reports/EKG's, [place] health care facility records)? Report findings @ -No old charts were reviewed Differential Chest Pain: Stable Angina, Unstable Angina, STEMI, NSTEMI Aortic Dissection, Pneumothorax, Musculoskeletal, Esophageal Spasm GERD, Cholecystitis, Pancreatitis, Zoster, this is not meant to be an all-inclusive list. EKG interpreted by me (3pts min.). @Sinus rhythm rate of 92, IA interval 164, QRS duration 106, QTc [address] s egment elevation. X-rays interpreted by me (1pt min.). @ -Chest x-ray negative for acute cardiopulmonary disease CT interpreted by me (1pt min.). @ -None done U/S interpreted by me (1pt. min.). @ -[Ultrasound is negative for acute pathology What testing was considered but not performed or refused? (CT, X-rays, U/S, labs)? Why? @ -None What meds were considered but not given or refused? Why? @ -None Did you discuss the management of the patient with other professionals (professionals i.e. ., PA, FEED INSPECTION SUPERVISOR, lab, RT, psych nurse, social work job titles, collection systems administrator, teacher, head correction officer, manager case)? Give summary @ -Sound physician group Was smoking cessation discussed for >3mins.? @ -No Was critical care preformed (if so, how long)? @ -No Were there social determinants of health that impacted care today? How? (Homelessness, low income, unemployed, alcoholism, drug addiction, transportation, low edu. Level, literacy, decrease access to med. care, senior care, rehab)? @ -No Was there de-escalation of care discussed even if they declined (Discuss DNR or withdrawal of care, Hospice)? DNR status @ -No What co-morbidities impacted this encounter? (DM, HTN, Smoking, COPD, CAD, Cancer, CVA, ARF, Chemo, Hep., AIDS, mental health diagnosis, sleep apnea, morbid obesity)? @ -None Was patient admitted / discharged? Hospital course, mention meds given and route, prescriptions, significant lab abnormalities, going to OR and other pertinent info. @ -54-year-old female presenting with central chest pain and diaphoresis. Pain was severe at onset and occurred just prior to arrival. Pain was typical in nature. Pain has improved at the time my evaluation and remains minimal while in the emergency department. EKG is sinus without ST segment elevation. Chest x-ray is clear. I did obtain an ultrasound of the gallbladder which was negative for acute pathology. Patient has normal CBC, normal CMP, negative D- dimer, negative initial troponin. Given the onset of symptoms and severity of symptoms she will be kept in observation for serial cardiac enzymes, telemetry, cardiology consultation. Undiagnosed new problem with uncertain prognosis? @ -No Drug Therapy requiring intensive monitoring for toxicity (Heparin, Nitro, Insulin, Cardizem)? @ -No Were any procedures done? @ -No Diagnosis/symptom? @Chest pain rule out Acute, or Chronic, or Acute on Chronic? @ -Acute Uncomplicated (without systemic symptoms) or Complicated (systemic symptoms)? @Complicated Side effects of treatment? @ -No Exacerbation, Progression, or Severe Exacerbation? @ -No Poses a threat to life or bodily function? How? (Chest pain, [place], [place], pneumonia, PE, COPD, DKA, ARF, appy, cholecystitis, CVA, Diverticulitis, Homicidal, Suicidal, threat to staff... and all critical care pts) @ -Yes, ACS - Lab Data Result diagrams: 12/10/24 20:23 12/10/24 20:23 Lab Results 12/10/24 12/10/24 12/10/24 Range/Units 20:23 20:23 20:23 WBC 6.95 (4.50-10.00) 10*3/uL RBC 4.53 (4.10-5.20) 10*6/uL Hgb 13.4 (12.0-15.0) g/dL Hct 39.7 (37.2-46.3) % MCV 87.6 (80.0-97.0) fL MCH 29.6 (27.0-32.0) pg MCHC 33.8 (32.0-37.0) g/dL Plt Count 274 (140-440) 10*3/uL MPV 9.2 L (9.5-12.2) fL Immature Gran % (Auto) 0.4 % Neutrophils % 52.5 % Lymphocytes % 32.5 % Monocytes % 10.5 % Eosinophils % 3.5 % Basophils % 0.6 % Immature Gran # 0.03 (0.00-0.04) 10*3/uL Neutrophils # 3.65 (1.80-7.70) 10*3/uL Lymphocytes # 2.26 (0.90-5.00) 10*3/uL Monocytes # 0.73 (0.20-1.00) 10*3/uL Eosinophils # 0.24 (0.04-0.35) 10*3/uL Basophils # 0.04 (0.00-0.10) 10*3/uL PT 10.3 (10.0-12.5) sec INR 0.9 (<1.2) APTT 23.7 (22.0-30.0) sec D-Dimer 0.24 (<0.60) mg/L FEU Sodium 139 (137-145) mmol/L Potassium 3.9 (3.5-5.1) mmol/L Chloride 103 (98-107) mmol/L Carbon Dioxide 27 (22-30) mmol/L Anion Gap 9 mmol/L BUN 26 H (7-17) mg/dL Creatinine 0.84 (0.52-1.04) mg/dL Est GFR (CKD-EPI)AfAm 90 (>60 ml/min/1.73 sqM) Est GFR (CKD-EPI)NonAf 78 (>60 ml/min/1.73 sqM) Glucose 142 H (74-99) mg/dL Calcium 9.3 (8.4-10.2) mg/dL Magnesium 2.0 (1.6-2.3) mg/dL Total Bilirubin 0.4 (0.2-1.3) mg/dL AST 28 (14-36) U/L ALT 23 (4-34) U/L Alkaline Phosphatase 99 (38-126) U/L Troponin I (0.000-0.034) ng/mL Total Protein 7.1 (6.3-8.2) g/dL Albumin 4.5 (3.5-5.0) g/dL Lipase 444 H (23-300) U/L /18/25 Range/Units 20:23 WBC (4.50-10.00) 10*3/uL RBC (4.10-5.20) 10*6/uL Hgb (12.0-15.0) g/dL Hct (37.2-46.3) % MCV (80.0-97.0) fL MCH (27.0-32.0) pg MCHC (32.0-37.0) g/dL Plt Count (140-440) 10*3/uL MPV (9.5-12.2) fL Immature Gran % (Auto) % Neutrophils % % Lymphocytes % % Monocytes % % Eosinophils % % Basophils % % Immature Gran # (0.00-0.04) 10*3/uL Neutrophils # (1.80-7.70) 10*3/uL Lymphocytes # (0.90-5.00) 10*3/uL Monocytes # (0.20-1.00) 10*3/uL Eosinophils # (0.04-0.35) 10*3/uL Basophils # (0.00-0.10) 10*3/uL PT (10.0-12.5) sec INR (<1.2) APTT (22.0-30.0) sec D-Dimer (<0.60) mg/L FEU Sodium (137-145) mmol/L Potassium (3.5-5.1) mmol/L Chloride (98-107) mmol/L Carbon Dioxide (22-30) mmol/L Anion Gap mmol/L BUN (7-17) mg/dL Creatinine (0.52-1.04) mg/dL Est GFR (CKD-EPI)AfAm (>60 ml/min/1.73 sqM) Est GFR (CKD-EPI)NonAf (>60 ml/min/1.73 sqM) Glucose (74-99) mg/dL Calcium (8.4-10.2) mg/dL Magnesium (1.6-2.3) mg/dL Total Bilirubin (0.2-1.3) mg/dL AST (14-36) U/L ALT (4-34) U/L Alkaline Phosphatase (38-126) U/L Troponin I <0.012 (0.000-0.034) ng/mL Total Protein (6.3-8.2) g/dL Albumin (3.5-5.0) g/dL Lipase (23-300) U/L Disposition Clinical Impression: Chest pain Disposition: ADMITTED IP TO THIS [facility] Condition: Stable Is patient prescribed a controlled substance at d/c from ED?: No Referrals: Masoud Minor MD [Primary Care Provider] - 1-2 days Time of Disposition: 21:42
[2024-12-10 20:34] LABS: Basophils # (A) 0.04 10*3/uL (0.00-0.10); Basophils % (A) 0.6 %; Eosinophils # (A) 0.24 10*3/uL (0.04-0.35); Eosinophils % (A) 3.5 %; HCT 39.7 % (37.2-46.3); HGB 13.4 g/dL (12.0-15.0); Lymphocytes # (A) 2.26 10*3/uL (0.90-5.00); Lymphocytes % (A) 32.5 %; MCH 29.6 pg (27.0-32.0); MCHC 33.8 g/dL (32.0-37.0); MCV 87.6 fL (80.0-97.0); Mean Platelet Volume 9.2 fL (9.5-12.2); Monocytes # (A) 0.73 10*3/uL (0.20-1.00); Monocytes % (A) 10.5 %; Neutrophils # (A) 3.65 10*3/uL (1.80-7.70); Neutrophils % (A) 52.5 %; Platelet Count 274 10*3/uL (140-440); RBC 4.53 10*6/uL (4.10-5.20); RDW 13.9 % (11.5-14.5); WBC 6.95 10*3/uL (4.50-10.00)
[2024-12-10 20:45] LABS: ALT 23 U/L (4-34); AST 28 U/L (14-36); African American GFR (CKD) 90 (>60 ml/min/1.73 sqM); Albumin 4.5 g/dL (3.5-5.0); Alkaline Phosphatase 99 U/L (38-126); Anion Gap 9 mmol/L; Blood Urea Nitrogen 26 mg/dL (7-17); Calcium 9.3 mg/dL (8.4-10.2); Carbon Dioxide 27 mmol/L (22-30); Chloride 103 mmol/L (98-107); Glucose 142 mg/dL (74-99); Lipase 444 U/L (23-300); Non-African American GFR(CKD) 78 (>60 ml/min/1.73 sqM); Potassium 3.9 mmol/L (3.5-5.1); Sodium 139 mmol/L (137-145); Total Bilirubin 0.4 mg/dL (0.2-1.3); Total Protein 7.1 g/dL (6.3-8.2)
[2024-12-10 20:49] LABS: INR 0.9 (<1.2); Partial Thromboplastin Time 23.7 sec (22.0-30.0); Prothrombin Time 10.3 sec (10.0-12.5)
--- NOTE | 2024-12-10 20:51 | XR ---
EXAMINATION TYPE: XR chest 2V DATE OF EXAM: 12/10/2024 8:46 PM COMPARISON: Prior chest radiograph 09/23/2022. CLINICAL INDICATION: Female, 54 years old with history of Chest Pain; [facility] TECHNIQUE: XR chest 2V Frontal and lateral views of the chest. FINDINGS: Lungs/Pleura: There is no evidence of pleural effusion, focal consolidation, or pneumothorax. Pulmonary vascularity: Unremarkable. Heart/mediastinum: Cardiomediastinal silhouette is unremarkable. Musculoskeletal: No acute osseous pathology. Other findings: None IMPRESSION: No acute cardiopulmonary disease/process. [facility], , 12/10/2024 8:49 PM
--- NOTE | 2024-12-10 21:25 | US ---
EXAMINATION TYPE: US gallbladder DATE OF EXAM: 12/10/2024 COMPARISON: NONE CLINICAL INDICATION: Female, 54 years old with history of epigastric pain; epigastric pain. slight na usea. last ate at 6:30pm TECHNIQUE: Grayscale and color Doppler imaging of the right upper quadrant was performed. FINDINGS: EXAM MEASUREMENTS: Liver Length: 12.0 cm Gallbladder Wall: 0.1 cm CBD: 0.4 cm Right Kidney: 9.2 x 3.8 x 4.8 cm BASEBALL GLOVE STUFFER NOTES:slightly limited due to overlying gas Pancreas: portions visualized wnl Liver: wnl Gallbladder: appears slightly contracted, patient ate at 6:30pm. wnl as best seen Evidence for sonographic Hollins's sign: no CBD: wnl Right Kidney: There is a 6 x 3 x 4mm echogenic foci seen in the superior pole IMPRESSION: 1. No sonographic evidence of cholelithiasis or acute cholecystitis. 2. Nonobstructing right renal calculi measuring up to 6 mm in the superior pole region. No hydroneph rosis. [facility], , 12/10/2024 9:23 PM
[2024-12-10] MEDS: ASPIRIN 325 MG TAB PO STA (21:37)
[2024-12-10] MEDS ORDERED: NALOXONE 0.4 MG/ML 1 ML VIAL IV PRN (21:39)
[2024-12-10] MEDS ORDERED: ACETAMINOPHEN TAB 325 MG TAB PO PRN (21:39)
--- NOTE | 2024-12-10 22:34 | P.HPIM ---
History of Present Illness H&P Date: 12/10/24 Chief Complaint: Chest pain This is a 54-year-old female patient with no significant past medical history presented to the ER complaining of substernal chest pain that started 1 hour prior to presentation. Patient describes her pain as " squeezing" , located substernally, radiating beneath her lower rib cage , lasting for 20 to 25 minutes , was severe initially and then calmed down on its own . Nothing made it better or worse. She was resting when it started . Associated with diaphoresis and lightheadedness . She did report having a brief episode of chest pain 2 months prior to presentation. She reports that lasted for a few minutes only. She did not seek medical attention back then. No history of coronary artery disease. No family history of coronary artery disease. No prior stress test or echocardiogram. EKG did not show any ischemic changes. Initial troponin was not elevated. Labs not remarkable except for lipase of 400 . Patient admitted under observation . Gallbladder ultrasound was not remarkable. Chest x-ray not remarkable Past medical history : None Past surgical history : Right shoulder surgery and left knee surgery Social history : No tobacco use, occasional alcohol use and no illicit drug use Review of system : Negative except with mentioned HPI PE: General: nontoxic, no distress, appears at stated age Derm: warm, dry, intact Head: atraumatic, normocephalic, symmetric Eyes: EOMI, anicteric sclera Mouth: no lip lesion, mucus membranes moist Cardiovascular: S1 S2 reg, no murmur, rubs, or gallops Lungs: CTA bilateral, no rales, no accessory muscle use Abdominal: soft, non-tender to palpataion, no appreciable organomegaly Extremities: no gross muscle atrophy, no edema, no contractures Neuro: Alert, Oriented, CNII-XII grossly intact, gait normal Psych: well appearing, appropriate affect Assessment and plan : - Chest pain, likely noncardiac : EKG did not show any ischemic changes and initial troponin was not elevated Will repeat a second set of troponin Exercise stress test and echocardiogram Patient did receive full dose of aspirin Will order lipid panel CODE STATUS is full code DVT prophylaxis : no need Patient admitted under observation Time spent : 45 min Past Medical History Additional Past Medical History / Comment(s): HAS IUD History of Any Multi-Drug Resistant Organisms: None Reported Past Surgical History: Orthopedic Surgery Additional Past Surgical History / Comment(s): RT ROTATOR CUFF REPAIR. LT KNEE SX Past Anesthesia/Blood Transfusion Reactions: No Reported Reaction Past Psychological History: No Psychological Hx Reported Smoking Status: Never smoker Past Alcohol Use History: Occasional Past Drug Use History: None Reported - Past Family History Father Family Medical History: Deep Vein Thrombosis (DVT) Medications and Allergies Home Medications Medication Instructions Recorded Confirmed Type Cholecalciferol (Vitamin D3) 125 mcg PO DAILY 02/17/20 09/23/22 History [Vitamin D3 (5000 Iu)] levonorgestreL [Mirena] 1 dose IY DIRECTED 02/17/20 09/23/22 History Ascorbic Acid [Vitamin C] 1,000 mg PO DAILY 09/23/22 09/23/22 History Azelastine HCl [Astelin Nasal 137 mcg EA NOSTRIL DAILY PRN 09/23/22 09/23/22 Hi story [place]] Fexofenadine/Pseudoephedrine 1 tab PO BID PRN 09/23/22 09/23/22 History [Yesenia-D 12 Hour Tablet] Ibuprofen [Advil] 400 mg PO Q8HR PRN 09/23/22 09/23/22 History Magnesium 250 mg PO DAILY 09/23/22 09/23/22 History Vitamin B Complex 1 cap PO DAILY 09/23/22 09/23/22 History Zinc Gluconate [Zinc] 50 mg PO DAILY 09/23/22 09/23/22 History valACYclovir HCL [Valtrex] 500 mg PO DIRECTED PRN 09/23/22 09/23/22 History Allergies Allergy/AdvReac Type Severity Reaction Status Date / Time latex Allergy BLISTERS Verified 12/10/24 20:14 Physical Exam Vitals: Vital Signs Temp Pulse Resp BP Pulse Ox 12/10/24 21:40 77 16 132/82 100 12/10/24 20:55 82 18 141/87 97 12/10/24 20:11 97.9 F 110 H 18 182/97 99 Intake and Output 12/10/24 12/10/24 12/10/24 06:59 14:59 22:59 Other: Weight 61.235 kg Results CBC & Chem 7: 12/10/24 20:23 12/10/24 20:23 Labs: Abnormal Lab Results - Last 24 Hours (Table) 12/10/24 12/10/24 Range/Units 20:23 20:23 MPV 9.2 L (9.5-12.2) fL BUN 26 H (7-17) mg/dL Glucose 142 H (74-99) mg/dL Lipase 444 H (23-300) U/L
[2024-12-10] MEDS: PANTOPRAZOLE 40 MG TABLET PO STA (22:56)
[2024-12-11 02:46] VITALS: RESP 20
[2024-12-11 08:19] VITALS: BP 119/81; PULSE 73; TEMP 97.8
[2024-12-11] MEDS ORDERED: NON FORMULARY DRUG (Ubrogepant [Ubrelvy] 100 MG Tablet) PO PRN (08:43)
--- NOTE | 2024-12-11 09:57 | P.CRDCN ---
History of Present Illness History of present illness: HISTORY OF PRESENT ILLNESS: This is a 54-year-old female with a past medical history significant for childhood asthma. Patient does not follow with a managing consultant. We have been asked to see the patient in consultation for chest pain. Patient examined at the bedside. Patient states yesterday she started to have pain in the middle of her chest. She also reports having abdominal pain. She states that she felt diaphoretic. She reports nausea without vomiting. She also reports having pain underneath her rib cage. She states the pain lasted for about 20 minutes. She denies having pain like this prior. She denies any drugs or smoking. She reports 1 caffeinated beverage a day. She reports drinking alcohol approximately 2 times a month. She denies any family history of CAD. She states that she is normally very active and exercises regularly. DIAGNOSTICS: - EKG reveals sinus mechanism with no signs of acute ischemia. - Chest xray negative for acute findings. - Laboratory data: WBC 6.95. Hemoglobin 13.4. Platelet count 274. D-dimer 0.24. Sodium 139. Potassium 3.9. BUN 26. Creatinine 0.84. Troponin negative x 4. Lipase 444. - Current home cardiac medications include none. - No previous echocardiogram, stress test, or cardiac catheterization available in EMR for review REVIEW OF SYSTEMS: At the time of my exam: CONSTITUTIONAL: Denies fever or chills. HEENT: Denies blurred vision, vision changes, or eye pain. Denies hemoptysis CARDIOVASCULAR: Denies chest pain. Denies orthopnea. Denies PND. Denies palpitations RESPIRATORY: Denies shortness of breath. GASTROINTESTINAL: Denies abdominal pain. Denies nausea or vomiting. HEMATOLOGIC: Denies bleeding disorders. GENITOURINARY: Denies any blood in urine. SKIN: Denies pruitis. Denies rash. PHYSICAL EXAM: VITAL SIGNS: Reviewed. GENERAL: Well-developed in no acute distress. HEENT: Head is normocephalic. Pupils are equal, round. Sclerae anicteric. Mucous membranes of the mouth are moist. Neck supple. No JVD or thyromegaly LUNGS: Respirations even and unlabored. Lungs essentially clear to auscultation bilaterally. HEART: Regular rate and rhythm. S1 and S2 heard. Soft systolic murmur noted ABDOMEN: Soft. Nondistended. Nontender. EXTREMITIES: Normal range of motion. No clubbing or cyanosis. Peripheral pulses intact. No lower extremity edema NEUROLOGIC: Awake and alert. Oriented x 3. ASSESSMENT: Chest pain Elevated lipase of unclear etiology History of childhood asthma PLAN: An acute coronary event has been ruled out Obtain 2D echo to assess cardiac structure and function Patient to undergo stress echo today If negative, patient may be discharged home from a cardiac standpoint Nurse practitioner note has been reviewed by physician. Signing provider agrees with the documented findings, assessment, and plan of care documented by STEAM TABLE ATTENDANT as a scribe. Past Medical History Additional Past Medical History / Comment(s): HAS IUD History of Any Multi-Drug Resistant Organisms: None Reported Past Surgical History: Orthopedic Surgery Additional Past Surgical History / Comment(s): RT ROTATOR CUFF REPAIR. LT KNEE SX Past Anesthesia/Blood Transfusion Reactions: No Reported Reaction Past Psychological History: No Psychological Hx Reported Smoking Status: Never smoker Past Alcohol Use History: Occasional Past Drug Use History: None Reported Additional Drug Use History / Comment(s): USES CBD OINTMENT NEEDED - Past Family History Father Family Medical History: Deep Vein Thrombosis (DVT) Medications and Allergies Home Medications Medication Instructions Recorded Confirmed Type Cholecalciferol (Vitamin D3) 125 mcg PO DAILY 02/17/20 12/11/24 History [Vitamin D3 (5000 Iu)] Ascorbic Acid [Vitamin C] 1,000 mg PO DAILY 09/23/22 12/11/24 History Zinc Gluconate [Zinc] 50 mg PO DAILY 09/23/22 12/11/24 History Magnesium Glycinate 200 mg PO DAILY 12/11/24 12/11/24 History Magnesium L-Threonate 2,000 mg PO DAILY 12/11/24 12/11/24 History Ubrogepant [Ubrelvy] 100 mg PO DAILY PRN 12/11/24 12/11/24 History Allergies Allergy/AdvReac Type Severity Reaction Status Date / Time latex Allergy BLISTERS Verified 12/11/24 08:13 Physical Exam Vitals: Vital Signs Temp Pulse Pulse Resp BP BP Pulse Ox 12/11/24 08:00 97.8 F 73 119/81 96 12/11/24 02:45 97.5 F L 69 20 116/77 98 12/11/24 00:13 97.6 F 72 18 131/82 96 12/10/24 22:57 73 18 110/67 98 12/10/24 21:40 77 16 132/82 100 12/10/24 20:55 82 18 141/87 97 12/10/24 20:11 97.9 F 110 H 18 182/97 99 Intake and Output 12/10/24 12/11/24 12/11/24 22:59 06:59 14:59 Other: Weight 61.235 kg 61.235 kg Results 12/10/24 20:23 12/10/24 20:23 Cardiac Enzymes 12/10/24 12/10/24 12/11/24 Range/Units 20:23 20:23 00:26 AST 28 (14-36) U/L Troponin I <0.012 <0.012 (0.000-0.034) ng/mL 12/11/24 12/11/24 Range/Units 03:01 07:35 AST (14-36) U/L Troponin I <0.012 <0.012 (0.000-0.034) ng/mL Coagulation 12/10/24 Range/Units 20:23 PT 10.3 (10.0-12.5) sec APTT 23.7 (22.0-30.0) sec CBC 12/10/24 Range/Units 20:23 WBC 6.95 (4.50-10.00) 10*3/uL RBC 4.53 (4.10-5.20) 10*6/uL Hgb 13.4 (12.0-15.0) g/dL Hct 39.7 (37.2-46.3) % Plt Count 274 (140-440) 10*3/uL Comprehensive Metabolic Panel 12/10/24 Range/Units 20:23 Sodium 139 (137-145) mmol/L Potassium 3.9 (3.5-5.1) mmol/L Chloride 103 (98-107) mmol/L Carbon Dioxide 27 (22-30) mmol/L BUN 26 H (7-17) mg/dL Creatinine 0.84 (0.52-1.04) mg/dL Glucose 142 H (74-99) mg/dL Calcium 9.3 (8.4-10.2) mg/dL AST 28 (14-36) U/L ALT 23 (4-34) U/L Alkaline Phosphatase 99 (38-126) U/L Total Protein 7.1 (6.3-8.2) g/dL Albumin 4.5 (3.5-5.0) g/dL Current Medications Generic Name Dose Route Start Last Admin Trade Name Freq PRN Reason Stop Dose Admin Acetaminophen 650 mg 12/10/24 21:39 Acetaminophen Tab 325 Mg Tab PO Q6HR PRN Mild Pain or Fever > 100.5 Naloxone HCl 0.2 mg 12/10/24 21:39 Naloxone 0.4 Mg/Ml 1 Ml Vial IV Q2M PRN Opioid Reversal Intake and Output 12/10/24 12/11/24 12/11/24 22:59 06:59 14:59 Other: Weight 61.235 kg 61.235 kg 12/10/24 20:23 12/10/24 20:23
[2024-12-11 10:26] LABS: Chol/HDL Ratio 2.62 Ratio; LDL Cholesterol,Calculated 152.5 mg/dL (0.0-131.0)
[2024-12-11] MEDS: ASCORBIC ACID 500 MG TAB PO SCH (11:18)
[2024-12-11] MEDS: ZINC SULFATE 220 MG CAP PO SCH (11:19)
[2024-12-11] MEDS: CHOLECALCIFEROL 125 MCG (5000 IU) TABLET PO SCH (11:19)
[2024-12-11 11:37] LABS: Amylase 78 U/L (23-121); Lipase 25 U/L (14-63)
--- NOTE | 2024-12-11 12:20 | CA ---
Transthoracic Echo Report Name: Amparo Pitt Age: 54 Gender: F : 1970 Exam Date: 12/11/2024 09:05 Exam Location: [facility] Ht (in): 66 Wt (lb): 135 Ordering Physician: Siva Peterson MD Attending/Referring Phys: Pig Machine Supervisor Valentina Saravia RDCS Procedure CPT: Indications: chest pain . TTE Cardiac Hx: Technical Quality: Good Contrast 1: Total Dose (mL): Contrast 2: Total Dose (mL): MEASUREMENTS (Male / Female) Normal Values 2D ECHO LV Diastolic Diameter PLAX 4.2 cm 4.2 - 5.9 / 3.9 - 5.3 cm LV Systolic Diameter PLAX 2.7 cm IVS Diastolic Thickness 0.9 cm 0.6 - 1.0 / 0.6 - 0.9 cm LVPW Diastolic Thickness 0.9 cm 0.6 - 1.0 / 0.6 - 0.9 cm LV Relative Wall Thickness 0.4 RV Internal Dim ED PLAX 2.5 cm LVOT Diameter 1.8 cm LA Systolic Diameter LX 3.1 cm 3.0 - 4.0 / 2.7 - 3.8 cm LV Diastolic Volume MOD BP 68.2 cm??? 67 - 155 / 56 - 104 cm??? LV Systolic Volume MOD BP 29.3 cm??? - 58 / 19 - 49 cm??? LV Ejection Fraction MOD BP 57.0 % >= 55 % LV Cardiac Index MOD BP 1656.8 cm???/min???m??? LV Diastolic Volume MOD 4C 59.4 cm??? LV Systolic Volume MOD 4C 26.4 cm??? LV Ejection Fraction MOD 4C 55.5 % LV Cardiac Index MOD 4C 1403.0 cm???/min???m??? LV Diastolic Length 4C 6.7 cm LV Systolic Length 4C 5.3 cm LV Diastolic Volume MOD 2C 69.1 cm??? LV Systolic Volume MOD 2C 27.7 cm??? LV Ejection Fraction MOD 2C 60.0 % LV Cardiac Index MOD 2C 1766.3 cm???/min???m??? LV Diastolic Length 2C 7.6 cm LV Systolic Length 2C 6.3 cm LA Volume 31.8 cm??? 18 - 58 / 22 - 52 cm??? LA Volume Index 18.8 cm???/m??? 16 - 28 cm???/m??? DOPPLER MV Area PHT 3.1 cm??? Mitral E Point Velocity 73.5 cm/s Mitral A Point Velocity 75.7 cm/s Mitral E to A Ratio 1.0 MV Deceleration Time 243.7 ms TR Peak Velocity 180.5 cm/s TR Peak Gradient 13.0 mmHg FINDINGS Left Ventricle Left ventricular ejection fraction is estimated at 55 to 60 %. Normal Left ventricular size, wall thickness, systolic function with no obvious regional wall motion abnormalities. Right Ventricle Normal right ventricular size and function. Right ventricular systolic pressure within normal limits. Right Atrium Normal right atrial size. Left Atrium Normal left atrial size. Mitral Valve Mitral valve thickened. No mitral stenosis. Mild mitral regurgitation. Aortic Valve Trileaflet aortic valve. No aortic stenosis. No aortic regurgitation. Tricuspid Valve Structurally normal tricuspid valve. No tricuspid stenosis. mild tricuspid regurgitation. Pulmonic Valve Structurally normal pulmonic valve. No pulmonic stenosis. No pulmonic regurgitation. Pericardium No pericardial effusion. Aorta Normal size aortic root and proximal ascending aorta. CONCLUSIONS 1. Normal left ventricular size and systolic function 2. Mild mitral and tricuspid regurgitation Previewed by: Dr. Forrest Arnett MD (Electronically Signed) Final Date: 11 December 2024 12:20
--- NOTE | 2024-12-11 12:22 | CA ---
Stress Echo Report Amparo Pitt Age: 54 Gender: F : 1970 Exam Date: 12/11/2024 11:11 Exam Location: [facility] Ht (in): 66 Wt (lb): 135 Ordering Physician: Bharati Shell Referring Physician: [id number] Specialist: NIKITA Technologist Procedure CPT: Indication: CP ICD-9 Codes: Rhythm: Patient History: CP. Cardiac Medications: SEE CHART,,,,, Medications in past 24 hours: Contrast: Stress Results Protocol: [place] Total dose(mL): Exercise Duration (min:sec): Max ST Depression (mm): Angina Score: Cervantes Score: METS: 9.1 Resting HR: 80 Resting BP: 126 / 82 Peak HR: 159 Peak BP: 170 / 77 Max Predicted HR: 164 97 % Max Predicted HR Target HR: 139 Double Product: [id number] Stress Summary: The patient's target heart rate was achieved BP Response: Reason for Termination: MAX EXERTION/TARGET HR Cardiac Symptoms: NO SYMPTOMS ECG Analysis Resting ECG: Normal sinus rhythm, normal ECG Stress ECG: No abnormal ST/T wave changes with exercise Arrhythmia: Occasional APCs Echo Analysis Resting Echo: Normal resting echocardiogram. Peak Echo Analysis: Normal wall thickening and motion with decrease in the cavity size MEASUREMENTS (Male/Female) Normal Values CONCLUSIONS 1. Good exercise tolerance with normal electrocardiographic response to exercise 2. Normal stress echocardiogram with no evidence of stress- induced ischemia Dr. Forrest Arnett MD (Electronically Signed) Final Date: 11 December 2024 12:22
[2024-12-11] MEDS: PANTOPRAZOLE 40 MG TABLET PO SCH (12:52)
[2024-12-11] MEDS: ASPIRIN 81 MG PO SCH (12:54)
--- NOTE | 2024-12-11 13:48 | P.DS ---
Providers Date of admission: 12/10/24 21:39 Expected date of discharge: 12/11/24 Attending physician: Manny Lin Consults: 12/10/24 21:39 Consult Physician Routine Consulting Provider: Ortega Woodruff Consult Reason/Comments: Cp Do you want consulting provider notified?: Yes Primary care physician: [facility] Hospital Course: Discharge Diagnosis: Chest pain, acute coronary event ruled out Elevated lipase. Unclear etiology and resolved Hyperlipidemia, newly diagnosed with total cholesterol of 257 and LDL of 150.5. Patient started on atorvastatin 20 mg daily. Hospital Course: Patient is a very pleasant 54-year-old female with no reported past medical history other than IUD placement, seasonal allergies, and childhood asthma. She presented to our facility on 12/10/2024 with a chief complaint of chest pain. Upon arrival to our facility, patient underwent evaluation in the emergency department. Vital signs upon arrival show blood pressure 182/97, heart rate 110, respiratory rate 18, temp 97.9 F, and SpO2 of 99% on room air. EKG completed showing normal sinus rhythm at 92 bpm with no noted T wave or ST abnormalities showing no signs of acute ischemia upon personal review and interpretation. Chest x-ray completed negative for acute cardiopulmonary process. Gallbladder ultrasound negative showing no sonographic evidence of cholelithiasis or cystitis revealing nonobstructing right renal calculi measuring up to 6 mm in the superior pole region and no hydronephrosis. Labs completed and reviewed. CBC showing low MPV of 9.2 otherwise unremarkable. Coagulation profile normal findings. D-dimer negative at 0.24. BMP showing prerenal azotemia with BUN of 26. Blood glucose 142. Calcium 9.3. Magnesium 2.0. Liver profile unremarkable. Troponin negative at less than 0.012. Lipase 444 patient admitted under services with consultation to cardiology. Troponins trended x 4 all negative at less than 0.012. Echocardiogram was completed showing preserved EF of 55 to 60% and mild mitral and tricuspid regurgitation. Patient reports being completely free from previous reported chest pain/discomfort. She reports feeling great. Stress echocardiogram was completed showing good exercise tolerance with normal ECG response to exercise at stress echocardiogram with no evidence of stress-induced ischemia. Patient cleared from cardiac perspective. She is medically optimized for discharge at this time. Prescription sent for atorvastatin 20 mg daily and Protonix 40 mg daily. Patient to follow-up outpatient with PCP in 1 to 2 days and green building engineer in 2 weeks. Physical exam: Vital signs reviewed and stable. General: Nontoxic, no distress and appears stated age. Derm: Skin warm and dry, normal coloration for ethnicity. Head: Atraumatic, normocephalic and symmetric. Eyes: EOM's intact, no lid lag, and anicteric sclera Mouth: no lip lesions, mucus membranes moist Cardiovascular: regular rate and rhythm with normal S1S2, no murmur, positive posterior tibial pulses bilaterally, and cap refill < 2 seconds. Lungs: Respirations even, regular, and unlabored on room air. Lungs CTA bilaterally, no rhonchi, no rales, no wheezing, and no accessory muscle usage. Abdominal: soft, nontender to palpation, no guarding, no appreciable organomegaly Ext: ROM intact. No gross muscle atrophy, no edema, no contractures Neuro: Speech clear, face symmetrical and CN II-XII grossly intact with no noted focal neuro deficits Psych: Alert and oriented to person, place, time, and situation. Appropriate and pleasant affect. A total of 31 minutes of time were spent preparing this complex discharge summary. Pt was discharged on 12/11/2024 at 1:44 PM Patient was seen independently by Nurse Practitioner. This document was prepared using [employer] dictation software. Please allow for errors in frame changer while rare they do occur. Eliot Doll NP rendered care for this patient independently, reviewed the findings and plan as documented in the note above. I did not physically speak with or examine the patient on this date. Patient Condition at Discharge: Stable Plan - Discharge Summary New Discharge Prescriptions: New Atorvastatin [Lipitor] 20 mg PO DAILY 30 Days #30 tablet Pantoprazole [Protonix] 40 mg PO DAILY 30 Days #30 tab Continue Cholecalciferol (Vitamin D3) [Vitamin D3 (5000 Iu)] 125 mcg PO DAILY Zinc Gluconate [Zinc] 50 mg PO DAILY Ascorbic Acid [Vitamin C] 1,000 mg PO DAILY Ubrogepant [Ubrelvy] 100 mg PO DAILY PRN PRN Reason: Migraine Headache Magnesium L-Threonate 2,000 mg PO DAILY Magnesium Glycinate 200 mg PO DAILY Discharge Medication List Cholecalciferol (Vitamin D3) [Vitamin D3 (5000 Iu)] 125 mcg PO DAILY 02/17/20 [History] Ascorbic Acid [Vitamin C] 1,000 mg PO DAILY 09/23/22 [History] Zinc Gluconate [Zinc] 50 mg PO DAILY 09/23/22 [History] Atorvastatin [Lipitor] 20 mg PO DAILY 30 Days #30 tablet 12/11/24 [Rx] Magnesium Glycinate 200 mg PO DAILY 12/11/24 [History] Magnesium L-Threonate 2,000 mg PO DAILY 12/11/24 [History] Pantoprazole [Protonix] 40 mg PO DAILY 30 Days #30 tab 12/11/24 [Rx] Ubrogepant [Ubrelvy] 100 mg PO DAILY PRN 12/11/24 [History] Follow up Appointment(s)/Referral(s): Masoud Minor MD [Primary Care Provider] - 1-2 days Forrest Arnett MD [STAFF PHYSICIAN] - 1 Week Patient Instructions/Handouts: Chest Pain (DC), Hyperlipidemia (DC) Activity/Diet/Wound Care/Special Instructions: Activity: As tolerated. Take breaks as needed. Diet: Heart healthy and carb consistent diet. Special Instructions: Take all of your medications as directed and remember to keep all of your doctor's appointments and follow-up as needed. Thank you for allowing us to participate in your care, it was truly a pleasure having you for our patient!!! Discharge Disposition: HOME SELF-CARE
== END 2024-12-11 14:59 | disposition home or self-care (01) ==
LOC: EC 20:10 → 1SOBS 21:39
PROVIDERS: ADMIT Student in an Organized Health Care Education/Training Program; ATTEND Student in an Organized Health Care Education/Training Program
DX: R07.2 Precordial pain (principal); R74.8 Abnormal levels of other serum enzymes; E78.5 Hyperlipidemia, unspecified; Z91.040 Latex allergy status
CPT/HCPCS: 99285; 36415; 93005; 93306; 93351; 85379; 80061; 80053; 82150; 83690 ×2; 83735; 84484 ×2; 85025; 85610; 85730; 71046; 76705; G0378 ×2